=== PATIENT | male | born 1960 | race Caucasian/White ===

== ENCOUNTER 2019-04-16 17:44 | Emergency (ER) | payer OTHER, SELFPAY ==
[2019-04-16 17:46] VITALS: BP 111/70; PULSE 81; RESP 15; TEMP 36.6
--- NOTE | 2019-04-16 17:56 | ED.GENADUL_ITS ---
Discharge Plan Disposition Patient Disposition: HOME Condition: Stable Discharge Details Chief Complaint: Laceration Clinical Impression: Fracture of thumb, Laceration of thumb Primary Care Provider: Cristobal Moser ED Provider: Danielle Lazo Home Meds and New Rx's Prescriptions: New cephalexin [Keflex] 500 mg capsule 500 mg PO QID 7 Days Qty: 28 RF: 0 Continued sildenafil [Viagra] 100 mg tablet 100 mg PO DAILY PRN (Reason: sexual activity) Qty: 1 RF: 8 lisinopril-hydrochlorothiazide 10-12.5 mg tablet 1 tab PO DAILY Qty: 60 RF: 6 Discharge Instructions Instructions: Laceration (ED), Finger Fracture (ED) Additional Instructions: Rest ice and elevate right thumb is much as possible. Alternate Tylenol and Motrin as needed and directed for pain. Take antibiotics until finished. Call orthopedics tomorrow morning to schedule a follow-up appointment for reevaluation. Return to the emergency department he develop any worsening or new concerning symptoms. Referrals: Be Luis MD [ [facility] STAFF PHYSICIAN] - Discharge Data Discharge Date/Time-TO BE ENTERED AT DEPARTURE: 04/16/19 20:36 Discharge Physician: Danielle Lazo Medical Decision Making 59yo M who presents to the ED with a right thumb laceration sustained when caught in the tierney of a car at work prior to arrival. Tetanus up-to-date. 2 cm V-shaped irregular laceration on right medial thumb. No bony deformities noted. Motor/sensory grossly intact. Will send for right thumb x-ray and closed with sutures. 1919 --x-ray notes fracture base distal phalanx IP joint. Wound irrigated extensively and soaked. 6 sutures 5-0 nylon placed. Wound covered with antibiotic ointment and finger dressing and splint. Dose of 1 g of Keflex given here. Patient placed on orthopedic follow-up list. Patient instructed to call orthopedics tomorrow morning to schedule a follow-up appointment for reevaluation. He is instructed return here at any time if worse for fever chills or worsening pain. Medical Records Medical records reviewed: Yes I reviewed the patient's medical records. Imaging Data Radiologic Study: Radiologist's impression: XR Right Finger(s) EXAM DATE/TIME: 04/16/2019 5:57 PM CLINICAL HISTORY: 59 years old, male; Pain; Finger(s); Right; Patient HX: S/P minor crush injury R thumb in tierney of car, R/O foreign body/ fracture. TECHNIQUE: Imaging protocol: XR Right fingers. Views: Minimum 2 views. COMPARISON: No relevant prior studies available. FINDINGS: Bones/joints: There is a small fracture of the base of the first distal phalanx at the IP joint. There is degenerative changes of the first metacarpal phalangeal joint. Soft tissues: Associated soft tissue swelling. IMPRESSION: Fractured base of the first distal phalanx at the IP joint. HPI General Mode of arrival: ambulatory . Date/Time Provider Initiated Documentation: 04/16/19 17:46 . Limitations to Documentation: no limitations . Information obtained by: patient . HPI Narrative: Patient is a 59-year-old male who presents to the ED with complaint of right thumb laceration sustained when caught on the tierney of a car. Patient states tetanus up-to-date. He denies any other injuries. Related Data Home Medications Medication Instructions Recorded Confirmed lisinopril 10 1 tab PO DAILY #60 tab 10/23/18 03/26/19 mg-hydrochlorothiazide 12.5 mg tablet sildenafil 100 mg tablet 100 mg PO DAILY PRN #1 tab 03/26/19 03/26/19 cephalexin [Keflex] 500 mg PO QID 7 Days #28 cap 04/16/19 Previous Rx's Medication Instructions Recorded lisinopril 10 1 tab PO DAILY #60 tab 10/23/18 mg-hydrochlorothiazide 12.5 mg tablet sildenafil 100 mg tablet 100 mg PO DAILY PRN #1 tab 03/26/19 cephalexin [Keflex] 500 mg PO QID 7 Days #28 cap 04/16/19 Allergies Allergy/AdvReac Type Severity Reaction Status Date / Time WOOD PRESERVATIVES Allergy Mild Skin Rash Uncoded 03/26/19 08:17 General Stated Complaint: Laceration MICHAEL: 4 Review of Systems Review of Systems All systems reviewed & are unremarkable except as noted in HPI and below [facility] Medical History (Updated 04/16/19 @ 17:58 by Danielle Lazo DO) HTN (hypertension) (Chronic) Surgical History No significant past surgical history (Acute) Social History Smoking/Tobacco Use Status: Former Tobacco Use Alcohol Intake: current Alcohol Intake frequency: 3 or more drinks per day Drug use: Occasionally Substance use type: does not use Exam Const General: cooperative, healthy appearing and no acute distress HENMT Head: normal to inspection Mouth: oral mucosae normal Eyes General: appearance normal, both eyes and all related structures Neck Neck: normal visual inspection Resp Effort & Inspection: normal respiratory effort and able to speak in complete sentences Cardio Rate: regular rate Skin General skin exam: no rashes or lesions noted Neuro General: alert, awake and oriented x3 Motor: muscle tone normal throughout Extrem Hand/finger images: 1. 2cm V-shaped laceration on medial aspect of R thumb with minimal surrounding edema. No ecchymoses, obvious foreign body, bony deformity. Psych Appearance: grossly normal Affect: normal affect Course Vital Signs Temperature 97.9 F 04/16/19 17:46 Pulse 81 04/16/19 17:46 Respiratory Rate 15 04/16/19 17:46 Blood Pressure 111/70 04/16/19 17:46 Temperature 97.9 F 04/16/19 17:46 Temperature Source Skin 04/16/19 17:46 Pulse 81 04/16/19 17:46 Respiratory Rate 15 04/16/19 17:46 Respiratory Effort Non-Labored 04/16/19 17:46 Blood Pressure 111/70 04/16/19 17:46 Oxygen Delivery Method Room Air 04/16/19 17:46 Oxygen Flow Rate 0 04/16/19 17:46 Procedures Laceration Laceration 1: Site: hand Side (If applicable): right Size (cm): 2 Description: irregular Depth: simple, single layer Local Anesthetic: Lidocaine 1% Amount of anesthesia used (mL): 4 Skin layer closed with: nylon Size (cm): 5-0 Number of sutures: 6 Technique: simple, interrupted (some sutures crossing over another)
--- NOTE | 2019-04-16 17:59 | NUR.NOTE ---
Nursing Note: hand soaking in sterile saline and betadine
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
--- NOTE | 2019-04-16 19:01 | DI.VRAD_ITS ---
EXAM: XR Right Finger(s) EXAM DATE/TIME: 04/16/2019 5:57 PM CLINICAL HISTORY: 59 years old, male; Pain; Finger(s); Right; Patient HX: S/P minor crush injury R thumb in tierney of car, R/O foreign body/ fracture. TECHNIQUE: Imaging protocol: XR Right fingers. Views: Minimum 2 views. COMPARISON: No relevant prior studies available. FINDINGS: Bones/joints: There is a small fracture of the base of the first distal phalanx at the IP joint. There is degenerative changes of the first metacarpal phalangeal joint. Soft tissues: Associated soft tissue swelling. IMPRESSION: Fractured base of the first distal phalanx at the IP joint. Dictated and Authenticated by: Cindy Tolentino MD. Ordering:BOB Santos MD
[2019-04-16] MEDS: Cephalexin 500 MG CAP 1000 MG PO (20:29)
[2019-04-16] MEDS: Bacitracin 1 PACKET (20:29)
== END 2019-04-16 20:36 | disposition home or self-care (01) ==
PROVIDERS: Emergency Provider Physician Assistant; PCP Emergency Medicine
DX: S61.011A Laceration without foreign body of right thumb without damage to nail, initial encounter (principal); S62.521A Displaced fracture of distal phalanx of right thumb, initial encounter for closed fracture; W23.0XXA Caught, crushed, jammed, or pinched between moving objects, initial encounter; Y99.0 Civilian activity done for income or pay; I10 Essential (primary) hypertension
CPT/HCPCS: 12001; 26750; 73140

== ENCOUNTER 2019-10-28 09:39 | Outpatient (CLI) | payer OTHER, SELFPAY ==
--- NOTE | 2019-10-28 09:59 | DI.RAD_ITS ---
EXAM: XR SHOULDER LT COMPLETE 2+V INDICATION: PAIN. COMPARISON: No exams were available for comparison TECHNIQUE: 2D digital imaging was performed. FINDINGS: There is normal alignment of the left shoulder. The bones are intact and normally mineralized. The soft tissues are unremarkable.
== END 2019-10-28 09:59 ==
PROVIDERS: PCP Emergency Medicine; Visit Provider Student in an Organized Health Care Education/Training Program
DX: M25.512 Pain in left shoulder (principal)
CPT/HCPCS: 73030

== ENCOUNTER 2019-11-03 19:28 | Outpatient (REF) | payer SELFPAY ==
[2019-11-03 21:25] LABS: Bilirubin Negative (Negative); Blood Trace-intact (Negative); Clarity Sl Cloudy (Clear); Glucose Negative (Negative); Ketones Negative (Negative); Leukocyte Esterase Small (Negative); Nitrite Negative (Negative); Specific Gravity 1.015 (1.005-1.025); Urobilinogen 0.2 EU/dL (Up TO 0.2)
[2019-11-03 21:34] LABS: Bacteria Moderate HPF (Negative); WBC >50 HPF (0-5)
[2019-11-03 21:35] LABS: C & S Indicated? Yes; Epithelial Cells Few HPF (Negative)
== END 2019-11-03 19:48 ==
LOC: NCHCN 19:28
PROVIDERS: PCP Emergency Medicine
DX: N39.0 Urinary tract infection, site not specified (principal)
CPT/HCPCS: 87077; 81003; 81015; 87086; 87186

== ENCOUNTER 2019-11-05 01:20 | Outpatient (CLI) | payer OTHER, SELFPAY ==
--- NOTE | 2019-11-05 08:25 | DI.MRI_ITS ---
EXAM: MR UPPER JOINT LT WO CLINICAL HISTORY: Acute traumatic shoulder weakness, bursitis lt shoulder, scapular dyskinesia, tend initis of long head of biceps brachi lt shoulder, M75.52, G25.89, M75.22 TECHNIQUE: Multiplanar multisequence MRI was performed. COMPARISON: XR SHOULDER LT COMPLETE 2+V from 10/28/2019 FINDINGS: There is no significant spurring at the AC joint. There is minimal spurring at the tip of the acro mion. There is a small amount of fluid in the subacromial subdeltoid bursa. There is severe subscap ularis muscle atrophy. There appears to be a severe partial tear of the subscapularis tendon with mar ked thinning. There is high signal in the rotator interval and a question of small focal tear at the anterior aspect of the supraspinatus tendon. Biceps tendon appears intact. Infraspinatus and teres minor tendons appear intact. There are subchondral cysts in the humeral head. There are no gross l abral tears. IMPRESSION: Partial tear and severe atrophy of the subscapularis tendon. Tear of the rotator interval. Questio n of a tear at the anterior supraspinatus tendon.
== END 2019-11-05 01:40 ==
PROVIDERS: PCP Emergency Medicine; Visit Provider Student in an Organized Health Care Education/Training Program
DX: M25.512 Pain in left shoulder (principal); M75.52 Bursitis of left shoulder; M75.22 Bicipital tendinitis, left shoulder; S46.012A Strain of muscle(s) and tendon(s) of the rotator cuff of left shoulder, initial encounter
CPT/HCPCS: 73221

== ENCOUNTER 2020-02-11 14:18 | Outpatient (CLI) | payer OTHER, SELFPAY ==
--- NOTE | 2020-02-11 08:30 | DI.RAD_ITS ---
EXAM: XR ELBOW RT COMPLETE CLINICAL HISTORY: Evaluate injury to right elbow. TECHNIQUE: 2D digital imaging was performed. COMPARISON: No exams were available for comparison FINDINGS: BONES: No acute fracture is present. There are hypertrophic changes seen at the radial tuberosity. I t has a benign appearance. No periosteal reaction or cortical destruction is seen in this region. S mall well corticated osseous densities are seen adjacent to the lateral epicondyle which may reflect old injury. There is a large enthesophyte at the triceps insertion site. There is an adjacent tiny ossicle. This may represent a small fracture fragment. JOINTS: The elbow is normally aligned. No joint effusion is seen. SOFT TISSUE: There is prominent soft tissue swelling over the olecranon. This may represent a hemato ma. Please correlate with the patient's history. IMPRESSION: DATA REPOSITORY: RADIATION DOSE DELIVERED:
== END 2020-02-11 14:38 ==
PROVIDERS: PCP Emergency Medicine; Referring Provider Emergency Medicine; Visit Provider Student in an Organized Health Care Education/Training Program
DX: M25.521 Pain in right elbow (principal); M79.89 Other specified soft tissue disorders; S59.901A Unspecified injury of right elbow, initial encounter
CPT/HCPCS: 73080

== ENCOUNTER 2020-02-20 07:39 | Outpatient (CLI) | payer OTHER, SELFPAY ==
--- NOTE | 2020-02-20 09:00 | DI.MRI_ITS ---
EXAM: MR UPPER JOINT RT WO CLINICAL HISTORY: Right triceps rupture,[id number]. TECHNIQUE: Multiplanar multisequence MRI was performed. CONTRAST MATERIAL: Noncontrast COMPARISON: Plain films dated 11 Feb 2020. FINDINGS: There is spurring at the olecranon. There is some edema in the osteophyte and adjacent aspect of the olecranon. There is abnormal thickening and high signal as well as some waviness in the distal tric eps tendon. There may be a few intact fibers. There is marked dorsal edema in the soft tissues. Th ere is olecranon bursitis. No joint effusion is seen. Prominence of the radial tubercle is seen. T he biceps and brachialis tendons as well as common flexor and extensor tendons appear intact. IMPRESSION: Near complete tear of the triceps tendon. There may be a few intact fibers. Prominent olecranon spu r. Olecranon bursitis. DATA REPOSITORY:
== END 2020-02-20 07:59 ==
PROVIDERS: PCP Emergency Medicine; Visit Provider Student in an Organized Health Care Education/Training Program
DX: S46.311A Strain of muscle, fascia and tendon of triceps, right arm, initial encounter (principal); M70.21 Olecranon bursitis, right elbow
CPT/HCPCS: 73221

== ENCOUNTER 2020-02-24 12:28 | Outpatient (CLI) | payer SELFPAY ==
[2020-02-25 03:22] LABS: COVID-19 RT-PCR UVMMC Result Negative (Negative)
== END 2020-02-24 12:48 ==
PROVIDERS: PCP Emergency Medicine; Visit Provider Student in an Organized Health Care Education/Training Program
DX: Z11.59 Encounter for screening for other viral diseases (principal); Z01.818 Encounter for other preprocedural examination
CPT/HCPCS: U0003

== ENCOUNTER 2020-02-26 08:18 | Day surgery (SDC) | payer OTHER, SELFPAY ==
[2020-02-26] VITALS (10 sets, daily range): BP systolic 90–128; BP diastolic 50–88; PULSE 61–67; RESP 14–26; TEMP 36.4–37.1; O2SAT 94–97
[2020-02-26] MEDS: Lactated Ringers 1,000 ML 100 ML IV (09:16)
[2020-02-26] MEDS: ceFAZolin 2 GM/50 ML BAG IVPB (10:50)
--- NOTE | 2020-02-26 10:51 | ROE_ITS ---
Date of service: 02/26/20 Time of Service: 10:52 Operative Note Operative Note DATE OF PROCEDURE: 02/26/20 PRE-OP DIAGNOSIS: 1. Right elbow distal triceps tendon rupture 2. Right elbow olecranon bursitis POST-OP DIAGNOSIS: same PROCEDURE: 1. Right elbow triceps tendon repair, CPT# 71117 2. Right elbow excision olecranon bursa, CPT# 97405 SURGEON: Brandon Giordano [employer] OPERATOR: Lena Loo ANESTHESIA: GETA, regional and local ESTIMATED BLOOD LOSS: 15 TOURNIQUET TIME: 0 COMPLICATIONS: None Patient was transported to: PACU Patient's condition: stable Implants: Arthrex 4.75 mm swivel lock Indications: Please see complete medical record for details. Findings: High-grade partial distal triceps rupture probably 80% of the dorsal and central tendon insertion with poor quality tendon surrounding the tear and significant tendon degeneration about disrupted enthesophytes with preserved healthy attachments maybe 10% most medially and laterally. Significant olecranon bursitis loculated with loose bodies and significant calcium deposits throughout Procedure Description: In the operating room, general anesthesia was induced. The patient was positioned lateral on the operating room table. All bony prominences were well-padded. Preoperative antibiotics were administered. The right elbow was prepped and draped in the usual sterile fashion. The correct patient, procedure, and side of the procedure were all verified prior to incision. Using full-thickness flaps a posterior approach was taken to the olecranon and distal triceps tendon in a longitudinal fashion curving radially to avoid the tip of the olecranon. Hemostasis was maintained. A large chronic appearing olecranon bursitis fluid and calcium area was encountered. It was drained and removed circumferentially from superficial to deep in its entirety. The bursitis was significant and contained numerous calcium deposition loose bodies. The distal biceps tendon was exposed. The proximal ulna was exposed and the olecranon bursectomy completed distally. A large defect in the dorsal central distal triceps tendon was encountered. Care was taken to free up the distal triceps tendon from the central attachment while leaving the few healthy fibers most medially and laterally. The distal central tendon had to be debrided of significant weak degenerated frayed tissue and calcium and ensthesophytes were removed. Care was taken to protect the neurovascular structures both medially and laterally. A Hiwot clamp was used to maintain traction on the triceps while digital blunt dissection to free up the triceps tendon and confirm adequate reduction without undue tension at 90 degrees elbow flexion. Significant time was spent to clean up the tendon edge as well as the entirety of the bony bed footprint of the olecranon. There is significant osteophytes and previously mentioned enthesophytes that had to be removed to obtain an appropriate healthy bleeding bony bed tendon footprint. Next, the triceps tendon was secured using Arthrex suture tape in a locking Krak?w fashion using 2 sutures that were run from distal to proximal and back distal. Each suture pair exited the tendon footprint proximal margin. 2 fiber link sutures were then passed between each of the suture tape pairs keeping the loop proximal. 2 bone tunnels were placed in a proximal to distal fashion using a 2 mm drill and taking care to start at the proximal most margin of the triceps footprint and exit the proximal ulna cortex medially and laterally a few centimeters distally. Each set of 3 sutures both medially and laterally were brought through their respective bone tunnels using a Adhysteria suture retriever. One pair containing a suture tape from the medial and lateral repair stitch was then fed into the fiber link loop and brought through the tendon and back out the bone tunnel. This was repeated for the second side. This created a modified speed bridge reduction and compression repair. All sutures were provisionally tightened the elbow was taken to 90 degrees of flexion and there was found to be great apposition of healthy triceps tendon over its distal footprint without any gapping. The drill than the tap were used to place a 4.75 mm swivel lock in the central proximal ulna slightly distal from the 2 bone tunnels. After the drill was placed the Adhysteria suture passer was used to confirm the presence of a far cortex with additional depth available. Tap was then used to ensure the anchor would be appropriately flush and not prominent. Each pair of medial and lateral bone tunnel suture tapes was brought through the anchor eyelet from different sides and again individually tensioned medially and laterally. The suture anchor was inserted and brought flush to the cortex for maximal fixation and no irritation. The elbow was again brought through a range of motion and the tendon repair was found to be excellent and secure.. The free suture tape ends were cut. There was a small amount of medial tendon that was not secured by the speed bridge configuration. Fortunately, there was a #2 FiberWire available from the suture anchor. Each and was passed from deep to superficial in this medial tendon and the ends tied on top in horizontal mattress fashion. The knot was buried in the distal triceps tendon. Again, the elbow was ranged from full extension to flexion at least 135 degrees block by lateral positioning and beanbag. There was no gapping diastases or loss of fixation. The wound was copiously irrigated with normal saline. Deep tissue reapproximated itself nicely. Superficial layers were irrigated again with normal saline. 0.25% bupivacaine with epinephrine was infiltrated about the incision. 2-0 Monocryl was used to close subcutaneous tissue in a buried interrupted fashion. 3-0 Monocryl was used to close the skin in a buried subcuticular fashion. Xeroform was placed over the incision followed by dry 4 x 4 gauze and sterile soft roll. The arm was immobilized in a posterior plaster splint in approximately 90 degrees of elbow flexion. The patient awoke from anesthesia without complication and was transferred to the recovery room in a stable condition.
--- NOTE | 2020-02-26 14:08 | PDOC.DSDIS_ITS ---
Discharge Plan Disposition Patient Disposition: HOME Condition: Stable Discharge Details Reason For Visit: Right elbow surgery Attending Provider: Brandon Giordano Primary Care Provider: Cristobal Moser Home Meds and New Rx's Prescriptions: New naproxen 250 mg tablet 250 - 500 mg PO BID PRN (Reason: Moderate pain or swelling) Qty: 60 RF: 0 aspirin 81 mg tablet,delayed release (DR/EC) 81 mg PO DAILY 14 Days Qty: 14 RF: 0 oxycodone 5 mg tablet 5 - 10 mg PO Q4H PRN (Reason: moderate to severe pain) Qty: 12 RF: 0 Continued metronidazole [Metrogel] 1 % gel 1 applic TP DAILY Qty: 60 RF: 6 lisinopril-hydrochlorothiazide 10-12.5 mg tablet 1 tab PO DAILY Qty: 90 RF: 4 sildenafil [Viagra] 100 mg tablet 100 mg PO DAILY PRN (Reason: sexual activity) Qty: 3 RF: 8 naproxen 500 mg tablet 500 mg PO BID Qty: 20 RF: 0 valacyclovir 1 gram tablet 1,000 mg PO TID Qty: 21 RF: 0 Discontinued ibuprofen 200 mg tablet 800 mg PO DAILY PRN RF: 0 Discharge Instructions Additional Instructions: Surgery: Right elbow triceps tendon repair and olecranon bursa excision Activity: Non-weightbearing in splint at all times except to use hand for activities of daily living. Recommend elevation on a pillow or at the level of the heart to minimize swelling. May use sling when out of the house. Encourage daily range of motion all fingers and thumb. A physical therapy prescription will be provided separately today. Rehab protocol: Gentle elbow range of motion for 1 month. Active flexion okay. Passive?only extension. After 1 month advance to full range of motion with active assist and active extension. After 2 months may start closed chain strengthening After 3 months may start eccentric strengthening Prescriptions: Aspirin 81 mg take 1 daily to prevent a blood clot for 2 weeks Naproxen 250 mg take 1-2 every 12 hours with a meal as needed for moderate pain Oxycodone 5 mg take 1-2 every 4-6 hours as needed for severe pain You may use [id number] Tylenol (acetaminophen) as needed for mild pain. These pain medications may be taken all at once or in different combinations as needed. Also, recommend Colace (docusate) as a stool softener as surgery and pain medicine cause constipation. Dressings: Leave splint and dressing in place until follow-up. Keep clean and dry at all times. Follow-up: 10-[address] Giordano Patient may put his left shoulder previously prescribed physical therapy on hold for at least 2 weeks while he is recovering from his right elbow surgery. Please call the office during business hours with any questions or concerns. Let us know right away if you develop any redness, drainage, fevers, chest pain, or trouble breathing. Do not drink alcohol or drive for at least 24 hours after anesthesia. Referrals: Brandon Giordano MD [ [facility] STAFF PHYSICIAN] - DS: Diagnosis Discharge Diagnosis (1) Rupture of right triceps tendon: Status: Acute (2) Olecranon bursitis of right elbow: Status: Acute
== END 2020-02-26 15:58 | disposition home or self-care (01) ==
PROVIDERS: PCP Emergency Medicine; Visit Provider Student in an Organized Health Care Education/Training Program
PROC: (CPT 24341; principal; 2020-02-26 10:00)
DX: S46.311A Strain of muscle, fascia and tendon of triceps, right arm, initial encounter (principal); X58.XXXA Exposure to other specified factors, initial encounter; Y99.0 Civilian activity done for income or pay; M70.21 Olecranon bursitis, right elbow; G89.18 Other acute postprocedural pain
CPT/HCPCS: 24342; 24105; J0690; J1100; J2001; J2250; J2405; J2704; L3650

== ENCOUNTER 2020-03-14 10:32 | Emergency (ER) | payer SELFPAY ==
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
[2020-03-14 11:02] VITALS: BP 117/84; PULSE 83; RESP 18; TEMP 36.9; O2SAT 98
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
[2020-03-14] MEDS: Cephalexin 500 MG CAP PO (12:46)
== END 2020-03-14 13:26 | disposition home or self-care (01) ==
LOC: ER 11:51
PROVIDERS: Emergency Provider Student in an Organized Health Care Education/Training Program; PCP Emergency Medicine
DX: S62.630B Displaced fracture of distal phalanx of right index finger, initial encounter for open fracture (principal); W32.0XXA Accidental handgun discharge, initial encounter; I10 Essential (primary) hypertension
CPT/HCPCS: 99283; 73140

== ENCOUNTER 2020-03-16 11:23 | Outpatient (CLI) | payer SELFPAY ==
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
== END 2020-03-16 11:43 ==
PROVIDERS: PCP Emergency Medicine; Referring Provider Emergency Medicine; Visit Provider Physician Assistant Surgical
DX: S62.620A Displaced fracture of middle phalanx of right index finger, initial encounter for closed fracture (principal); S62.630A Displaced fracture of distal phalanx of right index finger, initial encounter for closed fracture
CPT/HCPCS: 73140

== ENCOUNTER 2020-03-23 15:13 | Outpatient (CLI) | payer SELFPAY ==
--- NOTE | 2020-03-23 14:30 | DI.RAD_ITS ---
EXAM: XR FINGER RT INDEX CLINICAL HISTORY: f/u fracture. TECHNIQUE: 2D digital imaging was performed. COMPARISON: CR XR FINGER RT INDEX from 03/16/2020 FINDINGS: BONES: The comminuted fractures involving the head of the middle phalanx and the base of the distal p halanx of the right index finger are unchanged. No new fracture is identified. JOINTS: Alignment of the joint is unchanged. SOFT TISSUE: There is persistent soft tissue swelling of the distal finger. IMPRESSION: Stable fractures involving the middle and distal phalanges of the right index finger. DATA REPOSITORY: RADIATION DOSE DELIVERED:
== END 2020-03-23 15:33 ==
PROVIDERS: PCP Emergency Medicine; Referring Provider Emergency Medicine; Visit Provider Student in an Organized Health Care Education/Training Program
DX: S62.620D Displaced fracture of middle phalanx of right index finger, subsequent encounter for fracture with routine healing (principal); S62.630D Displaced fracture of distal phalanx of right index finger, subsequent encounter for fracture with routine healing
CPT/HCPCS: 73140

== ENCOUNTER 2020-03-25 06:13 | Day surgery (SDC) | payer SELFPAY ==
[2020-03-25 06:15] VITALS: BP 118/79; PULSE 70; RESP 18; TEMP 36.7; O2SAT 99
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
[2020-03-25] MEDS: Lactated Ringers 1,000 ML 100 ML IV (06:54)
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
[2020-03-25] MEDS: ceFAZolin 2 GM/50 ML BAG IVPB (07:28)
[2020-03-25] MEDS: Sodium Bicarbonate 50 MEQ/50 ML VIAL (08:51)
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
== END 2020-03-25 09:25 | disposition home or self-care (01) ==
PROVIDERS: PCP Emergency Medicine; Visit Provider Student in an Organized Health Care Education/Training Program
PROC: (CPT 26756; principal; 2020-03-25 07:30)
DX: S62.630B Displaced fracture of distal phalanx of right index finger, initial encounter for open fracture (principal); W32.0XXA Accidental handgun discharge, initial encounter
CPT/HCPCS: 26756; 11012; 73120; J0690

== ENCOUNTER 2020-05-04 09:02 | Outpatient (CLI) | payer SELFPAY ==
--- NOTE | 2020-05-04 08:45 | DI.RAD_ITS ---
EXAM: XR FINGER RT INDEX CLINICAL HISTORY: fu healing right index finger. TECHNIQUE: 2D digital imaging was performed. COMPARISON: CR XR FINGER RT INDEX from 03/23/2020 XR HAND RT LIMITED from 03/25/2020 FINDINGS: BONES: There are stable post operative changes present. No change in alignment of the fracture. No new fracture is identified. JOINTS: The joint spaces are well maintained. No joint effusion is present. SOFT TISSUE: Soft tissue swelling around the finger. IMPRESSION: Stable postoperative changes. DATA REPOSITORY: RADIATION DOSE DELIVERED:
--- NOTE | 2020-05-04 09:15 | DI.RAD_ITS ---
EXAM: XR ELBOW RT COMPLETE CLINICAL HISTORY: fu right elbow pain. TECHNIQUE: 2D digital imaging was performed. COMPARISON: CR XR ELBOW RT COMPLETE from 02/11/2020 FINDINGS: Since the prior examination there has been decreased size of the enthesophyte on the olecranon. Ther e is also been a resolution of the soft tissue swelling posteriorly. Hypertrophic changes around the elbow appear stable. No acute fracture or dislocation is identified. The bones are normally minera lized. IMPRESSION: DATA REPOSITORY: RADIATION DOSE DELIVERED:
== END 2020-05-04 09:22 ==
PROVIDERS: PCP Emergency Medicine; Referring Provider Emergency Medicine; Visit Provider Student in an Organized Health Care Education/Training Program
DX: M25.521 Pain in right elbow (principal); S62.600D Fracture of unspecified phalanx of right index finger, subsequent encounter for fracture with routine healing; Z98.890 Other specified postprocedural states; M77.9 Enthesopathy, unspecified
CPT/HCPCS: 73080; 73140

== ENCOUNTER 2020-06-22 08:13 | Outpatient (CLI) | payer SELFPAY ==
--- NOTE | 2020-06-22 08:00 | DI.RAD_ITS ---
EXAM: XR FINGER RT INDEX CLINICAL HISTORY: f/u fracture TECHNIQUE: 2D digital imaging was performed. COMPARISON: CR XR FINGER RT INDEX from 05/04/2020 FINDINGS: The previously noted pin through the distal and middle phalanges has been removed. Fracture deformit ies of the distal aspect of the middle phalanx of base of the distal phalanx are again noted. Soft t issue swelling remains present.
--- NOTE | 2020-06-22 08:15 | DI.RAD_ITS ---
EXAM: XR SHOULDER LT COMPLETE 2+V CLINICAL HISTORY: f/u shoulder TECHNIQUE: 2D digital imaging was performed. COMPARISON: MR MR UPPER JOINT LT WO from 11/05/2019 FINDINGS: AP and axillary views were performed. There is mild narrowing of the glenohumeral joint and mild to moderate spurring of the glenoid. The AC joint is not optimally profiled but mild spurring is suspec theo. Humeral head is normally positioned. IMPRESSION: Ixgs-zj-vzrzckmn degenerative changes.
== END 2020-06-22 08:33 ==
PROVIDERS: PCP Emergency Medicine; Referring Provider Emergency Medicine; Visit Provider Student in an Organized Health Care Education/Training Program
DX: S62.630A Displaced fracture of distal phalanx of right index finger, initial encounter for closed fracture (principal); M19.012 Primary osteoarthritis, left shoulder
CPT/HCPCS: 73030; 73140

== ENCOUNTER 2020-07-07 01:30 | Outpatient (CLI) | payer OTHER, SELFPAY ==
--- NOTE | 2020-07-07 08:15 | DI.MRI_ITS ---
EXAM: MR UPPER JOINT LT WO CLINICAL HISTORY: Failure to progress, reevaluation,fracture of greater tuberosity lt humerus. TECHNIQUE: Multiplanar multisequence MRI was performed. COMPARISON: MR MR UPPER JOINT LT WO from 11/05/2019 CR XR SHOULDER LT COMPLETE 2+V from 06/22/2020 FINDINGS: BONES: There is no fracture or contusion pattern. There is mild marrow edema seen in the humeral head . JOINTS: Mild degenerative changes are seen at the acromioclavicular joint. The glenohumeral joint is normal. TENDONS: Supraspinatus: There is hyperintense signal seen anteriorly at the supraspinatus tendon. There also appears to be some artifact in this region. This may represent a partial tear of the supraspinatus t endon anteriorly. Infraspinatus: Unremarkable. Subscapularis: On the axial images there appears to be disruption of the Piyush of the superior aspec t of the subscapularis tendon suspicious for a tear. Teres Minor: Unremarkable. Biceps and [place]: Unremarkable. MUSCLES: There is mild atrophy of the infraspinatus and subscapularis muscles. GLENOID LABRUM: Unremarkable on this noncontrast examination. SOFT TISSUES: Unremarkable. LIGAMENTS: The coracoclavicular ligament appears grossly unremarkable. OTHER: There is a small amount of fluid seen in the subacromial subdeltoid bursa. There is fluid see n in the subcoracoid bursa. A small amount of fluid is seen within the glenohumeral joint which is w ithin normal limits. The rotator interval has a similar appearance compared to the prior examination . IMPRESSION: 1. Similar appearances of the supraspinatus and subscapularis tendon suspicious for partial tears. 2. Marrow edema seen in the region of the greater tuberosity. Degenerative changes of the AC joint. 3. Mild atrophy of the infraspinatus and subscapularis muscles. 4. Fluid seen in the subacromial subdeltoid bursa. DATA REPOSITORY:
== END 2020-07-07 01:50 ==
PROVIDERS: PCP Emergency Medicine; Visit Provider Student in an Organized Health Care Education/Training Program
DX: M19.012 Primary osteoarthritis, left shoulder (principal); S42.255D Nondisplaced fracture of greater tuberosity of left humerus, subsequent encounter for fracture with routine healing; M62.522 Muscle wasting and atrophy, not elsewhere classified, left upper arm
CPT/HCPCS: 73221

== ENCOUNTER 2020-08-09 03:08 | Outpatient (CLI) | payer OTHER, SELFPAY ==
[2020-08-10 11:06] LABS: SARS-CoV-2 RNA Source Nasal/Nares
[2020-08-10 11:07] LABS: SARS-CoV-2 RNA Not Detected (NotDetected)
== END 2020-08-09 03:28 ==
PROVIDERS: PCP Emergency Medicine; Visit Provider Student in an Organized Health Care Education/Training Program
DX: Z01.818 Encounter for other preprocedural examination (principal); M24.812 Other specific joint derangements of left shoulder, not elsewhere classified; M75.102 Unspecified rotator cuff tear or rupture of left shoulder, not specified as traumatic; M75.52 Bursitis of left shoulder; M75.22 Bicipital tendinitis, left shoulder
CPT/HCPCS: U0003

== ENCOUNTER 2020-08-12 10:29 | Day surgery (SDC) | payer OTHER, SELFPAY ==
[2020-08-12] VITALS (7 sets, daily range): BP systolic 101–137; BP diastolic 67–86; PULSE 70–74; RESP 16–18; TEMP 36.3–36.7; O2SAT 95–100
--- NOTE | 2020-08-12 10:16 | PDOC.DSDIS_ITS ---
Discharge Plan Disposition Patient Disposition: HOME Condition: Stable Discharge Details Reason For Visit: Left shoulder surgery Attending Provider: Brandon Giordano Primary Care Provider: Cristobal Moser Home Meds and New Rx's Prescriptions: New ibuprofen 800 mg tablet 800 mg PO BID PRN (Reason: pain, moderate) Qty: 60 RF: 0 aspirin 81 mg tablet,delayed release (DR/EC) 81 mg PO DAILY 14 Days Qty: 14 RF: 0 oxycodone 5 mg tablet 5 - 10 mg PO Q4H PRN (Reason: moderate to severe pain) Qty: 16 RF: 0 Continued lisinopril-hydrochlorothiazide 10-12.5 mg tablet 1 tab PO DAILY Qty: 90 RF: 4 sildenafil [Viagra] 100 mg tablet 100 mg PO DAILY PRN (Reason: sexual activity) Qty: 3 RF: 8 metronidazole [Metrogel] 1 % gel 1 applic topical QHS Qty: 60 RF: 6 Discharge Instructions Additional Instructions: Surgery: Shoulder arthroscopy with rotator cuff repair, biceps tenodesis, extensive debridement, and subacromial decompression. Activity: You should keep your arm at your side in a neutral position at all times except for physical therapy. Do not try to lift or raise your arm using your own muscles. You should use the sling whenever you are out of the house. You may have to adjust the abduction pillow or remove it for comfort. At home it is best to remove the sling and rest the arm on a pillow at your side or support the operative side with your other hand. You may allow the arm to dangle at your side. A physical therapy prescription will be sent electronically to begin in 2-3 weeks. Prescriptions: Aspirin 81 mg take 1 daily to prevent a blood clot for 2 weeks Ibuprofen 800 mg take 1-2 every 12 hours with a meal as needed for moderate pain Oxycodone 5 mg take 1-2 every 4-6 hours as needed for severe pain You may use kexv-fhk-snsciml Tylenol (acetaminophen) as needed for mild pain. These pain medications may be taken all at once or in different combinations as needed. Also, recommend Colace (docusate) as a stool softener as surgery and pain medicine cause constipation. Dressings: Remove shoulder bandage after 3 days. Leave the sticky Steri-Strips in place until they fall off or remove them after you shower. Cover the incisions with Band-Aids or leave them open to air. The biceps bandage (inside upper arm) is glued on separately. You may leave this one on a few days longer if it is difficult to remove. There is also glue underneath this bandage that can be left in place until it peels off. You may shower after 5 days. Follow-up: 10-[address] Giordano (08/25/20 at 10 AM) You may take off the leg compression stockings this evening at home. You may also leave them on a few days longer if you have a history of leg swelling or edema. Let us know right away if you develop any redness, drainage, fevers, chest pain, or trouble breathing. Do not drink alcohol or drive for at least 24 hours after anesthesia. Please call the office during business hours with any questions or concerns. Referrals: Brandon Giordano MD [ [facility] STAFF PHYSICIAN] - Discharge Orders Discharge Orders: Discharge Order (Routine); Ordered 08/12/20 Ordered By: Brandon Giordano DS: Diagnosis Discharge Diagnosis (1) Derangement of left shoulder joint: Status: Acute (2) Left rotator cuff tear: Status: Acute (3) Bursitis of left shoulder: Status: Acute (4) Tendinitis of long head of biceps brachii of left shoulder: Status: Acute (5) Fracture of greater tuberosity of left humerus: Status: Acute (6) Scapular dyskinesis: Status: Acute
[2020-08-12] MEDS: Lactated Ringers 1,000 ML 100 ML IV (11:05)
[2020-08-12] MEDS: ceFAZolin 2 GM/50 ML BAG IVPB (12:49)
[2020-08-12] MEDS: Bupivacaine 0.25% Pres-Free 30 ML VIAL (14:06)
[2020-08-12] MEDS: EPINEPHrine 30 MG/30 ML VIAL (15:47)
--- NOTE | 2020-08-12 16:08 | ROE_ITS ---
Date of service: 08/12/20 Time of Service: 16:01 Operative Note Operative Note DATE OF PROCEDURE: 08/12/20 PRE-OP DIAGNOSIS: Left: 1. Rotator cuff tear 2. LHB tendinopathy 3. Bursitis 4. Impingement POST-OP DIAGNOSIS: same PROCEDURE: Left: 1. Rotator cuff repair, CPT# 69185. This involved repair of the supraspinatus using anchor and sutures to reattach the rotator cuff back to the anterior lateral aspect of the greater tuberosity. 2. Open biceps tenodesis, CPT# 45355. This involved reattaching the long head of the biceps tendon to the proximal humerus in the sub-pectoral area of the bicipital groove at the correct tension. 3. Extensive debridement, CPT# 08017. This involved using arthroscopic hand instruments, power instruments, and radiofrequency instruments to release to r elease the long head of the biceps tendon and debride areas of labral tearing, synovitis, and chondromalacia about the biceps groove and lesser tuberosity within the glenohumeral joint anteriorly, superiorly and posteriorly. 4. Subacromial decompression with partial acromioplasty, CPT# 60686. This involved using arthroscopic power instruments and a radiofrequency wand to complete a bursectomy and remove bone spurs on the undersurface of the acromion. The certified surgical assistant was medically required in order to help assist in techniques above, which require positioning the arm, holding the arthroscope, and manipulating multiple instruments and sutures at the same time. This cannot be done without the help of an experienced certified surgical assistant. SURGEON: Brandon Giordano MOTOR INSPECTION MECHANIC: Lena Loo ANESTHESIA: GETA, regional and local ESTIMATED BLOOD LOSS: 5 PATHOLOGY: none sent COMPLICATIONS: None Patient was transported to: PACU Patient's condition: stable Implants: Arthrex: 4.75mm SwiveLocks x 1 and Unicortical Proximal Biceps Tenodesis Button Indications: The patient was diagnosed with the above conditions and a ppropriately indicated for surgical intervention. Please see complete medical record for details. Findings: Exam under anesthesia: Nearly full, symmetrical range of motion without instability Glenohumeral joint: Profound synovitis hemorrhagic inflammation anteriorly and superiorly. Long head of the biceps injection and type II SLAP tear. Chronic appearing atrophied subscapularis tear. Far anterior majority thickness adjacent to the rotator interval articular sided supraspinatus tear. Intact infraspinatus. Subacromial space: Significant bursitis. Moderate impinging subacromial bone spur. Rotator interval retracted chronic tissue injury with adjacent anteriormost nearly full-thickness supraspinatus tear. Intact infraspinatus. Intact majority supraspinatus over the greater tuberosity except for most anterior. Procedure Description: In the operating room, general anesthesia was induced. Bilateral shoulders were examined. The patient was positioned in the beachchair position. All bony prominences were well-padded. Preoperative antibiotics were administered. The shoulder was prepped and draped in the usual sterile fashion. The correct patient, procedure, and side of the procedure were all verified prior to incision. Starting through the posterior portal a standard complete diagnostic arthroscopy was performed of the glenohumeral joint including inspection of the long head of the biceps, anterior and superior labrum, subscapularis tendon, supraspinatus and infraspinatus tendons, and axillary recess. The glenoid and humeral head cartilage as well as the posterior labrum were inspected from an anterior viewing portal. Significant findings and interventions noted above. The biceps tendon was released from the superior labrum using arthroscopic scissors. 10 cc of 0.25% bupivacaine with epinephrine was infiltrated about a 2 to 3 cm longitudinal incision at the inferior margin of the pectoralis major localized over the long head of the biceps tendon. Blunt and sharp dissection were used to expose the tendon in the bicipital groove. The tendon was brought out of the wound and kept off the skin on top of a blue towel. The correct location for sub-pectoral fixation was localized, prepped with a rasp, and then drilled with a 3.2 mm drill pin in a unicortical fashion. Using a fiber loop suture the tendon was prepped from the musculotendinous junction a few centimeters proximal. The excess tendon was amputated. The free suture ends were then passed through the unicortical button implant. The drill pin was removed and the implant was placed into the humeral intramedullary canal. The button was flipped and the sutures were tensioned bringing the tendon down to bone. Tension and fixation were then tested and found to be appropriate. A free needle was used to pass suture through the tendon and the free ends of the suture were were tied compressing tendon to bone. The wound was copiously irrigated with normal saline. Subcutaneous tissue was closed using 3-0 Monocryl in a buried interrupted fashion. Skin was closed using 3-0 Monocryl in a buried subcuticular running fashion. Skin glue was applied over the incision. Mastisol was applied about the incision. The incision was covered with Telfa, gauze, and covered with a Tegaderm dressing. Starting through the posterior portal, the arthroscope was directed into the subacromial space. A lateral 50 yard line lateral portal was created. A combination of power instruments and a radiofrequency ablator were used to debride bursitis anteriorly, posteriorly, and laterally as well as expose and smooth bone spurring on the undersurface of the acromion. The coracoacromial ligament was minimally released. The bursectomy was completed viewing laterally and working from posteriorly and the rotator cuff was thoroughly inspected with findings noted above. Cannulas were directed at the rotator cuff tear and a superior anterior lateral rotator interval portal established. The tear was extremely anterior and was debrided to a stable tissue margin. The rotator interval tissue was retracted possibly chronically and not amenable to repair. The patient also history of stiffness this was avoided. The supraspinatus anteriormost margin could be lifted off its articular margin most anteriorly and this was debrided to the lateral most anterior footprint. A self retrieving suture passer was used to pass a fiber tape in an inverted horizontal mattress fashion and looped into a cinch stitch. An isolated anterior lateral anchor was punched, the sutures were loaded to the anchor appropriate tension applied the ankle inserted into bone. The repair was inspected and found to be stable throughout range of motion. The shoulder was drained of arthroscopic fluid. All portal sites were copiously irrigated. These incisions were closed using 3-0 Monocryl in a buried fashion, covered with Mastisol, Steri-Strips, Xeroform, dry gauze, and ABDs. The dressings were covered and secured with Medipore tape. The operative extremity was placed into a sling for immobilization. The patient awoke from anesthesia without complication and was transferred to the recovery room in a stable condition.
== END 2020-08-12 17:44 | disposition home or self-care (01) ==
LOC: SUR 10:29
PROVIDERS: PCP Emergency Medicine; Visit Provider Student in an Organized Health Care Education/Training Program
PROC: (CPT 29827; principal; 2020-08-12 11:30)
PROC: (CPT 23430; 2020-08-12 11:30)
DX: S43.422A Sprain of left rotator cuff capsule, initial encounter (principal); M75.22 Bicipital tendinitis, left shoulder; M75.52 Bursitis of left shoulder; M75.02 Adhesive capsulitis of left shoulder; M65.812 Other synovitis and tenosynovitis, left shoulder; S43.432A Superior glenoid labrum lesion of left shoulder, initial encounter; X58.XXXA Exposure to other specified factors, initial encounter; Y99.0 Civilian activity done for income or pay; G89.18 Other acute postprocedural pain
CPT/HCPCS: 29827; 23430; 29823; 29826; 76942; L3670; J0690; J2001; J2250; J2370

== ENCOUNTER 2020-12-17 21:09 | Outpatient (REF) | payer SELFPAY ==
[2020-12-17 21:33] LABS: Anion Gap 8.9 mmol/L (3-11); BUN 23 mg/dL (7-18); CO2 26.1 mmol/L (21.0-32.0); CREATININE 1.4 mg/dL (0.70-1.30); Calcium 8.9 mg/dL (8.5-10.1); Calculated LDL 156 mg/dL (<100); Chloride 102 mmol/L (98-107); Cholesterol 252 mg/dL (<200); Estimated GFR 51.87 (mL/min/1.73m2); Glucose 94 mg/dL (74-106); HDL Cholesterol 51 mg/dL (40-60); Potassium 4.2 mmol/L (3.5-5.1); Sodium 137 mmol/L (136-145); Triglyceride 228 mg/dL (<150)
[2020-12-20 10:22] LABS: PSA, Screening 3.4 ng/mL (0.0-3.5)
== END 2020-12-17 21:10 | disposition home or self-care (01) ==
LOC: LBN 21:09
PROVIDERS: PCP Emergency Medicine; Visit Provider Emergency Medicine
DX: I10 Essential (primary) hypertension (principal); Z12.5 Encounter for screening for malignant neoplasm of prostate
CPT/HCPCS: 80048; 80061; 84153

== ENCOUNTER 2021-02-23 09:34 | Outpatient (CLI) | payer SELFPAY ==
--- NOTE | 2021-02-23 08:30 | DI.RAD_ITS ---
Exam(s) XR KNEE RT 3V AP,LAT,LJ EXAM: XR KNEE RT 3V AP,LAT,JL CLINICAL HISTORY: right knee pain. TECHNIQUE: 2D digital imaging was performed. COMPARISON: MR RIGHT KNEE from 11/12/2007 CR CHEST 2 VIEWS PA,LAT from 02/19/2012 FINDINGS: There is mild narrowing of the femoral tibial joint space. Periarticular spurring is seen in the pos terior patella. No acute fracture or dislocation is seen. There is a well corticated osseous densit y at the anterior tibial tuberosity. This is unchanged compared to the MRI examination from 8. There is again seen a lucency with a sclerotic border in the posterior metaphysis of the proximal tibia. This was present on the MRI examination from 11/12/2007 and is unchanged. No suspicious lyti c or sclerotic lesions are seen. There is a small joint effusion. Atherosclerosis is present. IMPRESSION: 1. Mild degenerative changes of the right knee. 2. Small joint effusion. DATA REPOSITORY: RADIATION DOSE DELIVERED:
== END 2021-02-23 09:35 | disposition home or self-care (01) ==
LOC: DIORS 09:35
PROVIDERS: PCP Emergency Medicine; Referring Provider Emergency Medicine; Visit Provider Student in an Organized Health Care Education/Training Program
DX: M25.561 Pain in right knee (principal); M25.461 Effusion, right knee; M13.861 Other specified arthritis, right knee
CPT/HCPCS: 73562

== ENCOUNTER 2021-09-13 11:47 | Outpatient (CLI) | payer OTHER, SELFPAY ==
--- NOTE | 2021-09-13 10:45 | DI.RAD_ITS ---
Exam(s) XR ELBOW RT COMPLETE EXAM: XR ELBOW RT COMPLETE CLINICAL HISTORY: RIGHT ELBOW PAIN. TECHNIQUE: 2D digital imaging was performed of the left elbow. Three images were obtained. AP, lat eral and oblique views were obtained. COMPARISON: No exams were available for comparison FINDINGS: BONES: No acute fracture is present. No bony destructive lesion is seen. JOINTS: The elbow is normally aligned. No joint effusion is seen. Hypertrophic changes are seen aroun d the elbow. SOFT TISSUE: Dystrophic calcifications are seen in the soft tissues posterior to the elbow. IMPRESSION: No acute abnormality. DATA REPOSITORY: RADIATION DOSE DELIVERED:
== END 2021-09-13 11:48 | disposition home or self-care (01) ==
LOC: DIORS 11:47
PROVIDERS: PCP Emergency Medicine; Referring Provider Emergency Medicine; Visit Provider Student in an Organized Health Care Education/Training Program
DX: M25.521 Pain in right elbow (principal); M79.89 Other specified soft tissue disorders
CPT/HCPCS: 73080

== ENCOUNTER 2022-01-17 05:58 | Outpatient (CLI) | payer SELFPAY ==
[2022-01-17 08:56] LABS: Anion Gap 7.7 mmol/L (3-11); BUN 27 mg/dL (7-18); CO2 28.3 mmol/L (21.0-32.0); CREATININE 1.2 mg/dL (0.70-1.30); Calcium 8.9 mg/dL (8.5-10.1); Calculated LDL 111 mg/dL (<100); Chloride 102 mmol/L (98-107); Cholesterol 199 mg/dL (<200); Glucose 104 mg/dL (74-106); HDL Cholesterol 61 mg/dL (40-60); Potassium 4.7 mmol/L (3.5-5.1); Sodium 138 mmol/L (136-145); Triglyceride 135 mg/dL (<150)
[2022-01-17 20:15] LABS: PSA, Screening 2.9 ng/mL (<=4.5)
== END 2022-01-17 05:59 | disposition home or self-care (01) ==
LOC: LBO 05:59
PROVIDERS: PCP Nurse Practitioner Family; Visit Provider Emergency Medicine
DX: E78.5 Hyperlipidemia, unspecified (principal); I10 Essential (primary) hypertension; R97.20 Elevated prostate specific antigen [PSA]; Z12.5 Encounter for screening for malignant neoplasm of prostate
CPT/HCPCS: 36415; 80048; 80061; 84153

== ENCOUNTER 2023-01-17 02:54 | Outpatient (CLI) | payer OTHER, SELFPAY ==
[2023-01-17 16:15] LABS: ALT 45 U/L (16-63); AST 33 U/L (15-37); Alkaline Phosphatase 101 U/L (46-116); Bilirubin, Direct 0.1 mg/dL (0.0-0.2); Bilirubin, Total 0.4 mg/dL (0.2-1.0); CREATININE 1.5 mg/dL (0.70-1.30); Estimated GFR 52.64 (mL/min/1.73m2); Potassium 4.5 mmol/L (3.5-5.1); Total Protein 7.9 g/dL (6.4-8.2)
== END 2023-01-17 02:55 | disposition home or self-care (01) ==
LOC: LBO 02:54
PROVIDERS: PCP Nurse Practitioner Family; Visit Provider Nurse Practitioner Family
DX: I10 Essential (primary) hypertension (principal); F10.10 Alcohol abuse, uncomplicated; E78.5 Hyperlipidemia, unspecified
CPT/HCPCS: 36415; 80076; 82565; 84132

== ENCOUNTER 2023-05-10 13:40 | Emergency (ER) | payer OTHER, SELFPAY ==
[2023-05-10 13:48] VITALS: BP 122/65; PULSE 63; RESP 18; TEMP 36.8; O2SAT 99
[2023-05-10 14:45] VITALS: BP 106/64; PULSE 63; RESP 16; O2SAT 100
[2023-05-10 15:03] LABS: Lactate 0.6 mmol/L (0.6-1.4)
[2023-05-10 15:04] LABS: Abs Immature Grans 0.05 10^3/uL (0.0-0.06); Absolute Basophil Count 0.05 10^3/uL (0.0-0.2); Absolute Eosinophil Count 0.27 10^3/uL (0.0-0.7); Absolute Lymphocyte Count 1.31 10^3/uL (1.2-3.4); Absolute Monocyte Count 0.86 10^3/uL (0.1-0.8); Absolute Neutrophil Count 7.88 10^3/uL (1.2-6.7); Basophils % 0.5; Eosinophils % 2.6; HCT 38.7 % (40.0-50.0); HGB 12.7 g/dL (13.5-17.5); Immature Grans % 0.5; Lymphocytes % 12.6; MCHC 32.8 % (32.0-36.0); MCV 92 fL (80-95); MPV 9.3 fL (8.0-11.0); Monocytes % 8.3; Neutrophils % 75.5; Platelet Count 300 10^3/uL (130-400); RBC 4.23 10^6/uL (4.36-5.78); RDW 12.8 % (11.8-14.1); RDW-SD 42.8 fL; WBC 10.42 10^3/uL (4.4-10.8)
[2023-05-10 15:05] LABS: ESR 19 mm/hr (0-20)
[2023-05-10 15:20] LABS: ALT 26 U/L (16-63); AST 21 U/L (15-37); Albumin 3.5 g/dL (3.4-5.0); Alkaline Phosphatase 91 U/L (46-116); Anion Gap 10.1 mmol/L (3-11); BUN 34 mg/dL (7-18); Bilirubin, Total 0.4 mg/dL (0.2-1.0); C-Reactive Protein 10.02 mg/dL (0.0-0.3); CO2 26.9 mmol/L (21.0-32.0); CREATININE 1.4 mg/dL (0.70-1.30); Chloride 102 mmol/L (98-107); Estimated GFR 56.83 (mL/min/1.73m2); Glucose 106 mg/dL (74-106); Potassium 4.3 mmol/L (3.5-5.1); Sodium 139 mmol/L (136-145); Total Protein 7.9 g/dL (6.4-8.2)
--- NOTE | 2023-05-10 15:29 | W.ED.GENAD ---
Discharge Plan Disposition Patient Disposition: Home Condition: Improving Discharge Details Clinical Impression: Septic olecranon bursitis of right elbow Primary Care Provider: [facility] Jay ED Provider: Mariela Doyle Home Meds and New Rx's Prescriptions: New cephalexin 500 mg tablet 500 mg PO QID 10 Days Qty: 40 0RF clindamycin HCl 300 mg capsule 300 mg PO Q6H 10 Days Qty: 40 0RF No Action fluticasone propionate [Flonase Allergy Relief] 50 mcg/actuation spray,suspension 1 spray intranasal DAILY Qty: 16 3RF Rx Instructions: administer into each nostril cephalexin 500 mg capsule 500 mg PO QID Qty: 40 0RF triamcinolone acetonide 0.5 % cream 1 applic topical BID Qty: 30 1RF Rx Instructions: Apply to both arms, face and neck twice daily until clear. atorvastatin 20 mg tablet 20 mg PO DAILY Qty: 90 4RF lisinopril-hydrochlorothiazide 10-12.5 mg tablet 1 tab PO DAILY Qty: 90 4RF Rx Instructions: take in a.m. sildenafil [Viagra] 100 mg tablet 100 mg PO DAILY PRN (Reason: sexual activity) Qty: 3 8RF Rx Instructions: administer 1 to 1.5 hours before activity ibuprofen 800 mg tablet 800 mg PO BID PRN (Reason: pain, moderate) Qty: 60 0RF Discharge Instructions Instructions: Cellulitis (ED), Elbow Bursitis (ED) Additional Instructions: 1. Had an infected right olecranon bursa and may want to continue cephalexin 500 mg every 6 hours for 10 days. In addition, we are adding clindamycin 300 mg every 6 hours 10 days. Asked the pharmacist to recommend an [id number]-mqyvqea probiotic to take while on antibiotics. 2. The orthopedic clinic should reach out with an appointment to review on May 15. 3. Return here for any worsening symptoms such as increasing redness, increasing pain, fever, chills or any concerns. Discharge Data Discharge Physician: Mariela Doyle Medical Decision Making This is an immunocompetent [id number] 63-year-old male who presents with increasing redness over the right elbow after being diagnosed with olecranon bursitis and placed on cephalexin. His symptoms began a week ago and he presents today after being referred from [facility] care for increasing pain and redness. Needle aspiration reveals purulent material. I will consult orthopedics and send a Gram stain and culture. I will write for IV cefazolin and IV vancomycin Differential Diagnosis Differential Diagnosis: Septic right olecranon bursitis,traumatic bursitits, septic joint Medical Records Medical records reviewed: Yes I reviewed the patient's medical records. Imaging Data Radiologic Study: Imaging: X-Ray (Right elbow) Radiologist's impression: There is significant swelling of the soft tissues posterior to the elbow and upper forearm. There is no obvious radiopaque foreign body. Nevertheless, infectious etiology is the main consideration. There is no evidence of osteomyelitis. No obvious elbow joint effusion. Incidental findings of what appears to be chronic epicondylitis findings bilaterally. Also posterior calcification measuring 5 x 3 mm which may be avulsion injury off the triceps attachment site on the posterior olecranon fossa. Lab Data Lab results reviewed: Yes I reviewed the patient's lab results. HPI General Date/Time Provider Initiated Documentation: 05/10/23 14:10. Limitations to Documentation: no limitations. Information obtained by: patient. History of Present Illness with intensity rated at 1. Quality is described as aching, and is localized to the upper extremity (Elbow). HPI Narrative: Time seen was 1530 in bed 6. The patient is a 63-year-old immunocompetent uyoab-dohi-igikyaol male who presents with right elbow pain and swelling which began 1 week ago. He was seen in [facility] and diagnosed with septic olecranon bursitis and placed on cephalexin which he has been taking as prescribed. He is noticed increased swelling and redness extending both proximally and distally from the right elbow. He read presented to [facility] and was referred to the emergency department. He does have a history of a triceps tendon rupture and repair in [address] Giordano. He states that the pain is about the same or slightly worse. Currently the pain is 1 out of 10 in severity. He denies any fevers or chills. He does endorse decreased range of motion secondary to pain and swelling. He tells me that he did sustain a small abrasion to the elbow after his initial diagnosis. He denied any puncture wound abrasion or trauma prior to the onset of his symptoms although he does use his right arm and was leaning on his elbow before the symptoms began. The patient does not have any history of diabetes. He is no previous history of olecranon bursitis. He has no history of immunocompromise. Related Data Home Medications Medication Instructions Recorded Confirmed ibuprofen 800 mg tablet 800 mg PO BID PRN pain, moderate 08/12/20 05/10/23 #60 tabs triamcinolone acetonide 0.5 % 1 applic topical BID #30 grams 05/24/22 05/10/23 topical cream atorvastatin 20 mg tablet 20 mg PO DAILY #90 tabs 10/04/22 05/10/23 lisinopril 10 1 tab PO DAILY #90 tabs 10/04/22 05/10/23 mg-hydrochlorothiazide 12.5 mg tablet sildenafil 100 mg tablet (Viagra) 100 mg PO DAILY PRN sexual 10/04/22 05/10/23 activity #3 tabs fluticasone propionate 50 1 spray intranasal DAILY #16 grams 12/22/22 05/10/23 mcg/actuation nasal spray,suspension (Flonase Allergy Relief) cephalexin 500 mg capsule 500 mg PO QID #40 caps 05/07/23 05/10/23 cephalexin 500 mg tablet 500 mg PO QID 10 days #40 tabs 05/10/23 clindamycin HCl 300 mg capsule 300 mg PO Q6H 10 days #40 caps 05/10/23 Previous Rx's Medication Instructions Recorded ibuprofen 800 mg tablet 800 mg PO BID PRN pain, moderate 08/12/20 #60 tabs triamcinolone acetonide 0.5 % 1 applic topical BID #30 grams 05/24/22 topical cream atorvastatin 20 mg tablet 20 mg PO DAILY #90 tabs 10/04/22 lisinopril 10 1 tab PO DAILY #90 tabs 10/04/22 mg-hydrochlorothiazide 12.5 mg tablet sildenafil 100 mg tablet (Viagra) 100 mg PO DAILY PRN sexual 10/04/22 activity #3 tabs fluticasone propionate 50 1 spray intranasal DAILY #16 grams 12/22/22 mcg/actuation nasal spray,suspension (Flonase Allergy Relief) cephalexin 500 mg capsule 500 mg PO QID #40 caps 05/07/23 cephalexin 500 mg tablet 500 mg PO QID 10 days #40 tabs 05/10/23 clindamycin HCl 300 mg capsule 300 mg PO Q6H 10 days #40 caps 05/10/23 Allergies Allergy/AdvReac Type Severity Reaction Status Date / Time WOOD PRESERVATIVES Allergy Mild Skin Rash Uncoded 05/10/23 13:52 General Stated Complaint: Cellulitis MICHAEL: 3 Review of Systems Narrative: No fever, no chills. Increasing redness and swelling of the right elbow All systems reviewed & are unremarkable except as noted in HPI and below PFSH All Active Problems (Updated 05/10/23 @ 17:51 by Mariela Doyle MD) Septic olecranon bursitis of right elbow (Acute) Right arm cellulitis (Acute) Foot pain (Acute) Elevated PSA (Acute) Hyperlipidemia (Acute) Hx of [place]-Schl[place] disease (Acute) Chondromalacia, right knee (Acute) Hypertension (Chronic) Heavy alcohol use (Acute) Mostly beer= 6 pack/daily Derangement of left shoulder joint (Acute) Bursitis of left shoulder (Acute) Tendinitis of long head of biceps brachii of left shoulder (Acute) Scapular dyskinesis (Acute) Rupture of right triceps tendon (Acute ~02/06/20) Rosacea (Acute) Medical History COVID-19 Diagnosed 07/02/21 Jannsen vaccine 01/30/21 Fracture of greater tuberosity of left humerus (09/08/19) HTN (hypertension) Left rotator cuff tear Repaired surgically Olecranon bursitis of right elbow (~04/2023) Surgical History H/O abdominal surgery Hx of meniscectomy of right knee Hx of surgical 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 Social History Smoking/Tobacco Use Status: Former Tobacco Use Smoking risk assessment performed?: Yes Alcohol Intake: current Alcohol Intake frequency: 3 or more drinks per day Alcohol type: beer and hard liquor Previous attempts at quittin Counseling given: Yes Counseling provided: reduce to 2 or less/day and other Drug use: Daily Substance use type: marijuana Caregiver/Support person: No Household members: none Housing: house Communication Needs: Hard of Hearing Do you need help understanding health information?: Rarely Pets and animals: No Sexually active: Yes Do you think of yourself as: straight/heterosexual Current gender identity: male What is your relationship status?: refused to answer How often do you talk on the phone with friends or family?: three or more times per week How often do you get together with friends or relatives?: three or more times per week How often do you attend orthodoxy or denominational services?: decline to answer Do you belong to any clubs or organized social groups?: no Panel score (0-1 are the most socially isolated patients): 1 What type of physical activity do you participate in: none Frequency: does not exercise Akua/Sikh: None Special akua needs: No Seatbelt use: never Helmet use: No Do you feel safe at home: Yes Do you feel safe in your relationship?: Yes Exam Const General: cooperative, healthy appearing, comfortable, no acute distress, well developed, well groomed and well hydrated Nutritional Appearance: average body habitus and well nourished Orientation: alert, awake and oriented x3 HENMT Head: normal to inspection, normocephalic and atraumatic Ears: hearing grossly normal bilaterally and external ears normal General nose exam: external nose normal, nares normal and no nasal discharge Face and sinus: normal facial exam, sinuses nontender and face symmetric Mouth: oral mucosae normal, lip normal, tongue normal, oropharynx normal, moist mucous membranes and other (Normal phonation. The patient is handling secretions.) Throat: posterior oropharynx normal and uvula midline Eyes General: appearance normal, both eyes and all related structures Eyelids: eyelids normal Conjunctivae: conjunctivae normal Sclera: sclerae normal Cornea: corneas normal Pupils: PERRL EOM: EOM intact bilaterally and No nystagmus Neck Neck: normal visual inspection, full ROM, no lymphadenopathy, no meningeal signs, trachea midline and supple Lymphatic: no lymphadenopathy noted Chest Chest: normal inspection of the chest Resp Effort & Inspection: normal respiratory effort, able to speak in complete sentences, no audible wheezes, no nasal flaring, no respiratory distress, no retractions, no stridor, not tachypneic, no tracheal deviation, no use of accessory muscles, No prolonged expiratory phase and other (Normal inspiratory to expiratory ratio.) Auscultation: clear to auscultation bilaterally, no rales, no rhonchi, no wheezes and no rubs Tactile Fremitus: tactile fremitus absent Cardio Jugular venous pressure: no JVD Palpation: normal PMI Rate: regular rate Rhythm: regular rhythm Heart Sounds: S1 normal, S2 normal, no gallops, no murmurs and no rubs GI Inspection: normal to inspection and non-distended Palpation: soft, no hepatosplenomegaly, no guarding and nontender Percussion: normal to percussion Auscultation: normal bowel sounds General: No CVA tenderness Back/Spine/Pelvis Back: no CVA tenderness and No back tenderness Cervical Spine: normal cervical lordosis, cervical ROM normal, No cervical muscular tenderness, No pain with cervical ROM, No cervical spinal tenderness and No step off deformity Thoracic/Lumbar Spine: thoracic and lumbar spine normal to inspection, No thoracic spinal tenderness and No lumbar spinal tenderness Pelvis: no pain with anterior-posterior compression and no pain with lateral compression Skin General skin exam: turgor normal, no petechiae, no purpura and other (Skin is normal for ethnicity.) Rashes: no rashes Other: The patient's skin is warm and dry normal for ethnicity. There is swelling over the right olecranon bursa with warmth and erythema extending 3 to 4 cm both proximally and distally. He has slight decreased range of motion but does not have severe pain with flexion and extension. He cannot fully extend his elbow but can extend to about 145 degrees. He can flex to about 30 degrees. He has good supination pronation. The shoulder right wrist and hand have full range of motion. He is neurovascularly intact distal to the elbow. There is no axillary adenopathy. There is no lymphangitis or subcutaneous emphysema. Neuro General: patient alert, patient awake, patient oriented x3, moves all extremities, no meningeal signs, no focal motor deficits and CN's II-XI intact bilaterally Cranial Nerves: CN's II-XI intact bilaterally, PERRL, accommodation normal, EOM intact bilaterally, no nystagmus, facial strength normal, tongue midline, hearing normal and no nystagmus Cognition: normal cognition Speech: speech normal Gait: normal gait Motor: muscle tone normal throughout and strength 5/5 throughout Sensory Exam: no sensory deficits noted Extrem General: capillary refill normal Other: The patient does have some arthritic changes in his hands but is moving all of his extremities except the right elbow normally. The right elbow reveals a well-healed surgical scar over the elbow with swelling redness and fluctuance over the olecranon bursa on the right. Range of motion is described above. The area is warm to the touch. No evidence of lymphangitis. He is able to move his elbow joint without pain. He is neurovascularly intact distal to the right elbow. Psych Appearance: grossly normal Affect: normal affect Attitude: cooperative Thought Process: normal Thought Content: normal Insight: insight good Judgment: judgment good Other: The patient appears to have capacity make medical decisions. Course I discussed the case with ortho PA Valente Plascencia who discussed with Dr. Giordano, who requested an xray of the elbow and adding MRSA coverage, and they will follow up with the patient in clinic on 05/15 Reevaluation(s) Initial Evaluation: After review of the interaction of Bactrim with the patient's antihypertensive I have elected to prescribe clindamycin instead of trimethoprim/sulfamethoxazole. I have told the patient to return here for any new or worsening symptoms and to continue to cephalexin and to add clindamycin for antibiotic coverage. I have advised him to return for any new or worrisome symptoms including fevers,, increasing redness or pain, or any new or worrisome symptoms. Vital Signs Vital signs: Vital Signs Temperature 36.8 C 05/10/23 13:48 Pulse 63 05/10/23 13:48 Respiratory Rate 18 05/10/23 13:48 Blood Pressure 122/65 05/10/23 13:48 Pulse Oximetry 99 05/10/23 13:48 Temperature 36.8 C 05/10/23 13:48 Temperature Source Skin 05/10/23 13:48 Pulse 63 05/10/23 14:45 Respiratory Rate 16 05/10/23 14:45 Respiratory Effort Normal 05/10/23 13:52 Blood Pressure 106/64 05/10/23 14:45 Blood Pressure Position Sitting 05/10/23 13:48 Pulse Oximetry 100 05/10/23 14:45 Oxygen Delivery Method Room Air 05/10/23 14:45 Oxygen Flow Rate 0 05/10/23 14:45 Pain Level 1 05/10/23 13:48 Lab/Test Results Lab/Test Results: 05/10/23 14:55 Blood Blood Culture - Pending 05/10/23 14:10 Blood Blood Culture - Pending Laboratory Tests Range/Units 05/10/23 05/10/23 05/10/23 14:55 14:55 14:55 WBC (4.4-10.8) 10^3/uL RBC (4.36-5.78) 10^6/uL Hgb (13.5-17.5) g/dL Hct (40.0-50.0) % MCV (80-95) fL MCH (27.0-33.0) pg MCHC (32.0-36.0) % RDW (11.8-14.1) % Plt Count (130-400) 10^3/uL MPV (8.0-11.0) fL Immature Gran % Neutrophils % Lymphocytes % Monocytes % Eosinophils % Basophils % Nucleated RBC % (0.0-0.3) % Absolute Neutrophils (1.2-6.7) 10^3/uL Absolute Lymphocytes (1.2-3.4) 10^3/uL Absolute Monocytes (0.1-0.8) 10^3/uL Absolute Eosinophils (0.0-0.7) 10^3/uL Absolute Basophils (0.0-0.2) 10^3/uL ESR (0-20) mm/hr 19 VBG Lactate (0.6-1.4) mmol/L 0.6 Sodium (136-145) mmol/L 139 Potassium (3.5-5.1) mmol/L 4.3 Chloride (98-107) mmol/L 102 Carbon Dioxide (21.0-32.0) mmol/L 26.9 Anion Gap (3-11) mmol/L 10.1 BUN (7-18) mg/dL 34 H Creatinine (0.70-1.30) mg/dL 1.4 H Est GFR (CKD-EPI 2020) (mL/min/1.73m2) 56.83 Glucose (74-106) mg/dL 106 Calcium (8.5-10.1) mg/dL 9.0 Total Bilirubin (0.2-1.0) mg/dL 0.4 AST (15-37) U/L 21 ALT (16-63) U/L 26 Alkaline Phosphatase (46-116) U/L 91 C-Reactive Protein (0.0-0.3) mg/dL 10.02 H Total Protein (6.4-8.2) g/dL 7.9 Albumin (3.4-5.0) g/dL 3.5 Range/Units 05/10/23 14:55 WBC (4.4-10.8) 10^3/uL 10.42 RBC (4.36-5.78) 10^6/uL 4.23 L Hgb (13.5-17.5) g/dL 12.7 L Hct (40.0-50.0) % 38.7 L MCV (80-95) fL 92 MCH (27.0-33.0) pg 30.0 MCHC (32.0-36.0) % 32.8 RDW (11.8-14.1) % 12.8 Plt Count (130-400) 10^3/uL 300 MPV (8.0-11.0) fL 9.3 Immature Gran % 0.5 Neutrophils % 75.5 Lymphocytes % 12.6 Monocytes % 8.3 Eosinophils % 2.6 Basophils % 0.5 Nucleated RBC % (0.0-0.3) % 0.0 Absolute Neutrophils (1.2-6.7) 10^3/uL 7.88 H Absolute Lymphocytes (1.2-3.4) 10^3/uL 1.31 Absolute Monocytes (0.1-0.8) 10^3/uL 0.86 H Absolute Eosinophils (0.0-0.7) 10^3/uL 0.27 Absolute Basophils (0.0-0.2) 10^3/uL 0.05 ESR (0-20) mm/hr VBG Lactate (0.6-1.4) mmol/L Sodium (136-145) mmol/L Potassium (3.5-5.1) mmol/L Chloride (98-107) mmol/L Carbon Dioxide (21.0-32.0) mmol/L Anion Gap (3-11) mmol/L BUN (7-18) mg/dL Creatinine (0.70-1.30) mg/dL Est GFR (CKD-EPI 2020) (mL/min/1.73m2) Glucose (74-106) mg/dL Calcium (8.5-10.1) mg/dL Total Bilirubin (0.2-1.0) mg/dL AST (15-37) U/L ALT (16-63) U/L Alkaline Phosphatase (46-116) U/L C-Reactive Protein (0.0-0.3) mg/dL Total Protein (6.4-8.2) g/dL Albumin (3.4-5.0) g/dL Procedures Other Description: Needle aspiration of the right olecranon bursa. After verbal consent and appropriate timeout, the area was prepped and draped in sterile fashion. 1 mL local anesthetic with 1% lidocaine with epinephrine was placed over the area of fluctuance with good resulting anesthesia. The area was anesthetized with a 25-gauge needle. An 18-gauge needle was used to aspirate the bursa and 4 cc of purulent material was removed. A Gram stain and culture was sent. The patient tolerated the procedure well a dressing will be placed by the nursing staff. PAWSS Have you Ever Experienced Previous Episodes of Alcohol Withdrawal?: No Have you ever Experienced Withdrawal Seizures?: No Have you ever Experienced Delirium Tremens(DT)s?: No Have you ever undergone Alcohol Rehabilitation Treatment (i.e, inpt ot outpatient treatment programs)?: No Have you ever Experienced Blackouts?: No Have you ever Combined Alcohol with other Downers within the last 90 days?: No Have you ever Combined Alcohol with any other Substance of Abuse during the last 90 days?: No Positive Blood Alcohol level on Presentation? [PCS.BAL]: No Evidence of Increased Autonomic Activity (i.e. HR>120, tremor, sweating, agitation, nausea)?: No Result: 0
[2023-05-10] MEDS: ceFAZolin 1 GM/50 ML BAG IVPB (16:03)
--- NOTE | 2023-05-10 16:40 | W.ORTHOCONSU ---
Date of service: 05/10/23 Time of Service: 16:40 Assessment and Plan Assessment and plan (1) Right arm cellulitis: Status: Acute (2) Olecranon bursitis of right elbow: Assessment and plan: 63-year-old gentleman, [id number], evaluated in room 6 in the ER with right arm cellulitis and olecranon bursitis. Patient reports nontraumatic swelling of the right elbow that began approximately 1 week ago, slightly red and minimally uncomfortable. Seen at the urgent care and placed on Keflex. Patient again seen at the urgent care today as the swelling and the redness has spread. He denies fever, drainage, numbness, tingling, weakness. Denies rash elsewhere on his body. He does report history of olecranon bursitis several years ago. Consultation requested from the ED. Needle aspiration performed by Dr. Doyle describes bloody, purulent drainage. Sent to lab for culture. IV cephalosporin has been given. Laboratory values obtained, white blood cell count normal at 10.42, ESR 19, lactate 0.6. CRP is elevated at 10.02. Patient appears well, nontoxic, speaks in full sentences. Radial pulse in the 60s. Right arm exam, shoulder, wrist, hand unremarkable. Full range of motion. Elbow with full extension. Patient can flex to just above 90 degrees, states that after this the posterior aspect of his elbow feels tight. Posteriorly there is mild discomfort, swelling, surrounding warmth and erythema. No lymphangitic streaking. There is mild discomfort to the posterior elbow otherwise no discomfort to palpation over any bony prominences or the antecubital region. At this time patient appears well, nontoxic, afebrile. White blood cell count is normal at 10.42. Only inflammatory marker is elevated CRP of 10.02. Plan to initiate broad-spectrum antibiotics at the discretion of ER provider, discussed MRSA coverage such as single dose of IV Vanco in the ER with oral Bactrim versus IV and oral clindamycin therapy. Discussed bulky compression dressing, 4 x 4 padding to the posterior elbow then wrapped with a 6 inch Tone wrap. Discussed warm moist compresses as well as cool compresses. Patient is to return to the ER over the weekend for new or evolving symptoms. Otherwise he will follow-up in the orthopedic clinic on Sunday. No evidence of septic joint. This began as what sounds like olecranon bursitis and now subsequently has a surrounding cellulitis. Patient counseled regarding elevation, compression/padding protection, and encouraging elbow range of motion to prevent stiffness. History of right elbow triceps tendon repair and olecranon bursa excision February 2020. Right elbow x-rays recommended to the ER, obtained, and reviewed showing stable bony changes about the olecranon with overlying soft tissue edema. We can follow with the aspiration labs on Sunday to help guide antimicrobial therapy and clinically to determine the need for additional elbow surgery. Counseled regarding signs and symptoms of worsening infection, which should prompt return to the emergency department. PFSH All Active Problems Right arm cellulitis (Acute) Foot pain (Acute) Elevated PSA (Acute) Hyperlipidemia (Acute) Hx of Filiberto-Schlatter disease (Acute) Chondromalacia, right knee (Acute) Hypertension (Chronic) Heavy alcohol use (Acute) Mostly beer= 6 pack/daily Derangement of left shoulder joint (Acute) Bursitis of left shoulder (Acute) Tendinitis of long head of biceps brachii of left shoulder (Acute) Scapular dyskinesis (Acute) Rupture of right triceps tendon (Acute ~02/06/20) Rosacea (Acute) Medical History COVID-19 Diagnosed 07/02/21 Jannsen vaccine 01/30/21 Fracture of greater tuberosity of left humerus (09/08/19) HTN (hypertension) Left rotator cuff tear Repaired surgically Olecranon bursitis of right elbow (~04/2023) Surgical History H/O abdominal surgery Hx of meniscectomy of right knee Hx of surgical 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 Social History Smoking/Tobacco Use Status: Former Tobacco Use Smoking risk assessment performed?: Yes Alcohol Intake: current Alcohol Intake frequency: 3 or more drinks per day Alcohol type: beer and hard liquor Previous attempts at quittin Counseling given: Yes Counseling provided: reduce to 2 or less/day and other Drug use: Daily Substance use type: marijuana Caregiver/Support person: No Household members: none Housing: house Communication Needs: Hard of Hearing Do you need help understanding health information?: Rarely Pets and animals: No Sexually active: Yes Do you think of yourself as: straight/heterosexual Current gender identity: male What is your relationship status?: refused to answer How often do you talk on the phone with friends or family?: three or more times per week How often do you get together with friends or relatives?: three or more times per week How often do you attend scientologist or pentecostal services?: decline to answer Do you belong to any clubs or organized social groups?: no Panel score (0-1 are the most socially isolated patients): 1 What type of physical activity do you participate in: none Frequency: does not exercise Akua/Voodoo: None Special akua needs: No Seatbelt use: never Helmet use: No Do you feel safe at home: Yes Do you feel safe in your relationship?: Yes Results Last Vital Signs Temp 36.8 C 05/10/23 13:48 Pulse 63 05/10/23 14:45 Resp 16 05/10/23 14:45 BP 106/64 05/10/23 14:45 Pulse Ox 100 05/10/23 14:45 Labs 05/10/23 14:55 05/10/23 14:55 Labs: Laboratory Results - last 24 hr 05/10/23 05/10/23 05/10/23 14:55 14:55 14:55 WBC RBC Hgb Hct MCV MCH MCHC RDW Plt Count MPV Immature Gran % Neutrophils % Lymphocytes % Monocytes % Eosinophils % Basophils % Nucleated RBC % Absolute Neutrophils Absolute Lymphocytes Absolute Monocytes Absolute Eosinophils Absolute Basophils ESR 19 VBG Lactate 0.6 Sodium 139 Potassium 4.3 Chloride 102 Carbon Dioxide 26.9 Anion Gap 10.1 BUN 34 H Creatinine 1.4 H Est GFR (CKD-EPI 2020) 56.83 Glucose 106 Calcium 9.0 Total Bilirubin 0.4 AST 21 ALT 26 Alkaline Phosphatase 91 C-Reactive Protein 10.02 H Total Protein 7.9 Albumin 3.5 05/10/23 14:55 WBC 10.42 RBC 4.23 L Hgb 12.7 L Hct 38.7 L MCV 92 MCH 30.0 MCHC 32.8 RDW 12.8 Plt Count 300 MPV 9.3 Immature Gran % 0.5 Neutrophils % 75.5 Lymphocytes % 12.6 Monocytes % 8.3 Eosinophils % 2.6 Basophils % 0.5 Nucleated RBC % 0.0 Absolute Neutrophils 7.88 H Absolute Lymphocytes 1.31 Absolute Monocytes 0.86 H Absolute Eosinophils 0.27 Absolute Basophils 0.05 ESR VBG Lactate Sodium Potassium Chloride Carbon Dioxide Anion Gap BUN Creatinine Est GFR (CKD-EPI 2020) Glucose Calcium Total Bilirubin AST ALT Alkaline Phosphatase C-Reactive Protein Total Protein Albumin
--- NOTE | 2023-05-10 17:00 | DI.RAD_ITS ---
Exam(s) XR ELBOW RT COMPLETE EXAM: XR ELBOW RT COMPLETE CLINICAL HISTORY: septic right olecranon bursitis. TECHNIQUE: 2D digital imaging was performed. COMPARISON: CR XR ELBOW RT COMPLETE from 09/13/2021 FINDINGS: 3 views No evidence of acute fracture nor elevation of the anterior fat pad to suggest joint effusion. Findi ngs of bilateral chronic epicondylitis noted. Also some degenerative change on the lateral aspect of the radial head. Posteriorly there is prominent soft tissue swelling over the olecranon bursa and dorsal aspect of the upper half of the forearm as well as above the elbow. In addition, there is a 5 x 3 mm calcific den sity seen posteriorly approximately 3 cm above the biceps tendon insertion site. Cannot exclude the fact that this may represent an avulsion injury off the posterior aspect of the olecranon. Correlati on with any clinical signs of triceps tendons in injury recommended. IMPRESSION: There is significant swelling of the soft tissues posterior to the elbow and upper forearm. There is no obvious radiopaque foreign body. Nevertheless, infectious etiology is the main consideration. T here is no evidence of osteomyelitis. No obvious elbow joint effusion. Incidental findings of what appears to be chronic epicondylitis findings bilaterally. Also posterior calcification measuring 5 x 3 mm which may be avulsion injury off the triceps attachme nt site on the posterior olecranon fossa. DATA REPOSITORY: RADIATION DOSE DELIVERED:
[2023-05-10] MEDS: VANCOMYCIN/WATER (PEG) 1 GM/200 ML BAG IV (17:43)
[2023-05-10 19:18] VITALS: BP 125/99; PULSE 68; RESP 18; TEMP 36.4; O2SAT 100
== END 2023-05-10 19:21 | disposition home or self-care (01) ==
PROVIDERS: Emergency Medicine Emergency Medical Services; Emergency Provider Emergency Medicine Emergency Medical Services; PCP Nurse Practitioner Family
DX: M70.21 Olecranon bursitis, right elbow; M00.9 Pyogenic arthritis, unspecified
CPT/HCPCS: 20605; 80053; 85652; 87040; 96365; 96366; 96367; 99284; 73080; 83605; 85025; 86140; 87070; 87205; J0690

== ENCOUNTER → 2023-07-20 00:42 | Outpatient (CLI) | payer OTHER, SELFPAY ==
--- NOTE | 2023-07-20 08:20 | DI.MRI_ITS ---
Exam(s) MR UPPER JOINT RT WO EXAM: MR UPPER JOINT RT WO CLINICAL HISTORY: pain, olecranon bursitis rt elbow, m70.21. TECHNIQUE: Multiplanar multisequence MRI was performed. COMPARISON: Right elbow 10 May 2023 FINDINGS: Joints: No joint effusion. Bones: There is no fracture or contusion pattern. Spurring at the radial tubercle. Spurring at the olecranon. Biceps tendon: Normal. Brachialis tendon: Normal. Common flexor tendons: Common extensor tendons: Triceps tendon: Severe thickening and edema. Severe partial tear involving the distal 2.5 cm of the tendon to the attachment. There are somewhat intact fibers at the radial aspect and a few intact fi bers far medially. Soft tissues: No evidence of olecranon bursitis. IMPRESSION: Severe partial tear of the triceps tendon. DATA REPOSITORY:
== END ==
PROVIDERS: PCP Nurse Practitioner Family; Visit Provider Student in an Organized Health Care Education/Training Program
DX: M70.21 Olecranon bursitis, right elbow (principal); S46.311A Strain of muscle, fascia and tendon of triceps, right arm, initial encounter; X58.XXXA Exposure to other specified factors, initial encounter
CPT/HCPCS: 73221

== ENCOUNTER → 2023-09-13 12:40 | Outpatient (CLI) | payer OTHER, SELFPAY ==
--- NOTE | 2023-09-13 10:45 | DI.RAD_ITS ---
Exam(s) XR SHOULDER LT COMPLETE 2+V EXAM: XR SHOULDER LT COMPLETE 2+V CLINICAL HISTORY: persistent pain, post fall,m25.512. TECHNIQUE: 2D digital imaging was performed of the left shoulder. Six images were obtained. AP, Gr ashey, Y-view and axillary views were obtained. COMPARISON: CR XR SHOULDER LT COMPLETE 2+V from 06/22/2020 FINDINGS: BONES: No acute fracture is present. No bony destructive lesion is seen. Postsurgical changes are see n in the proximal left humerus. JOINTS: No dislocation present. Mild degenerative changes are seen in the shoulder. SOFT TISSUE: The visualized lungs are clear. IMPRESSION: No acute or healing fracture or dislocation. DATA REPOSITORY: RADIATION DOSE DELIVERED:
== END ==
PROVIDERS: PCP Nurse Practitioner Family; Visit Provider Nurse Practitioner Family
DX: M25.512 Pain in left shoulder (principal); W19.XXXA Unspecified fall, initial encounter; Y99.0 Civilian activity done for income or pay
CPT/HCPCS: 73030

== ENCOUNTER 2023-09-19 17:22 | Emergency (ER) | payer OTHER, SELFPAY ==
[2023-09-19] VITALS (53 sets, daily range): BP systolic 98–129; BP diastolic 52–83; PULSE 63–84; RESP 11–27; TEMP 36.6–36.7; O2SAT 97–98
[2023-09-19 17:46] LABS: Abs Immature Grans 0.02 10^3/uL (0.0-0.06); HCT 42.8 % (40.0-50.0); HGB 14.4 g/dL (13.5-17.5); MCH 30.6 pg (27.0-33.0); MCHC 33.6 % (32.0-36.0); MCV 91 fL (80-95); MPV 9.4 fL (8.0-11.0); Platelet Count 261 10^3/uL (130-400); RBC 4.71 10^6/uL (4.36-5.78); RDW 12.6 % (11.8-14.1); RDW-SD 41.4 fL; WBC 5.84 10^3/uL (4.4-10.8)
--- NOTE | 2023-09-19 17:48 | ED.GENADUL_ITS ---
Discharge Plan Disposition Patient Disposition: Home Condition: Improving Discharge Details Clinical Impression: Angioedema Primary Care Provider: Guanakito Jay ED Provider: Fabio Back Home Meds and New Rx's Prescriptions: Continued fluticasone propionate [Flonase Allergy Relief] 50 mcg/actuation spray,suspension 1 spray intranasal DAILY Qty: 16 3RF Rx Instructions: administer into each nostril prednisone 10 mg tablet 10 mg PO DIRECTED Qty: 20 0RF Patient Comments: prescribed 09/19/23 @ [facility] Rx Instructions: take 40mg x2 days, then 30mg x2 days, then 20mg x2 days, then 10mg x2 days triamcinolone acetonide 0.5 % cream 1 applic topical BID Qty: 30 1RF Rx Instructions: Apply to both arms, face and neck twice daily until clear. atorvastatin 20 mg tablet 20 mg PO DAILY Qty: 90 4RF sildenafil [Viagra] 100 mg tablet 100 mg PO DAILY PRN (Reason: sexual activity) Qty: 3 8RF Rx Instructions: administer 1 to 1.5 hours before activity ibuprofen 800 mg tablet 800 mg PO BID PRN (Reason: pain, moderate) Qty: 60 0RF Discontinued lisinopril-hydrochlorothiazide 10-12.5 mg tablet 1 tab PO DAILY Qty: 90 4RF Hold Instructions: Adverse Reaction Rx Instructions: take in a.m. Discharge Instructions Instructions: Angioedema (ED) Additional Instructions: Please discontinue lisinopril as this likely caused your angioedema. Discussed with your primary care physician alternative therapies for high blood pressure. Please return to the emergency department for any worsening symptoms Medical Decision Making 63-year-old male presents with angioedema of upper lip maxillary region and small area of lower lip, no oropharyngeal involvement, patient is tolerating secretions has normal voice hemodynamically stable normoxic. Likely TASHI inhibitor related angioedema. No family history of angioedema. Solu-Medrol given before arrival, have added Benadryl. Will observe patient here in department. If symptoms begin to resolve consider discharge home versus admission for observation. 20: 37 patient resting comfortably, upper lip and maxillary swelling is reducing, slight increase of lower lip swelling. No oral or pharyngeal involvement. Tolerating secretions normal voice resting comfortably. Will continue to observe 23: 09 angioedema greatly improved. Normal voice tolerating secretions. No oropharyngeal involvement. Patient struck to discontinue his lisinopril follow- up close with the primary care physician. Given strict return precautions for any worsening symptoms HPI General Date/Time Provider Initiated Documentation: 09/19/23 17:27 . HPI Narrative: 63-year-old male presents with 4 hours of facial swelling involving his upper lip and portion of his lower lip, denies trouble swallowing or breathing. No nausea vomiting lightheadedness or rash. Similar episode 3 weeks ago. Patient was given Solu-Medrol 80 mg at [facility]. Patient does take lisinopril. No family history of angioedema Related Data Home Medications Medication Instructions Recorded Confirmed ibuprofen 800 mg tablet 800 mg PO BID PRN pain, moderate 08/12/20 09/19/23 #60 tabs triamcinolone acetonide 0.5 % 1 applic topical BID #30 grams 05/24/22 09/19/23 topical cream atorvastatin 20 mg tablet 20 mg PO DAILY #90 tabs 10/04/22 09/19/23 sildenafil 100 mg tablet (Viagra) 100 mg PO DAILY PRN sexual 10/04/22 09/19/23 activity #3 tabs fluticasone propionate 50 1 spray intranasal DAILY #16 grams 12/22/22 09/19/23 mcg/actuation nasal spray,suspension (Flonase Allergy Relief) prednisone 10 mg tablet 10 mg PO DIRECTED #20 tabs 09/19/23 09/19/23 Previous Rx's Medication Instructions Recorded ibuprofen 800 mg tablet 800 mg PO BID PRN pain, moderate 08/12/20 #60 tabs triamcinolone acetonide 0.5 % 1 applic topical BID #30 grams 05/24/22 topical cream atorvastatin 20 mg tablet 20 mg PO DAILY #90 tabs 10/04/22 sildenafil 100 mg tablet (Viagra) 100 mg PO DAILY PRN sexual 10/04/22 activity #3 tabs fluticasone propionate 50 1 spray intranasal DAILY #16 grams 12/22/22 mcg/actuation nasal spray,suspension (Flonase Allergy Relief) prednisone 10 mg tablet 10 mg PO DIRECTED #20 tabs 09/19/23 Allergies Allergy/AdvReac Type Severity Reaction Status Date / Time WOOD PRESERVATIVES Allergy Mild Skin Rash Uncoded 09/19/23 17:34 General Stated Complaint: FacialProb MICHAEL: 2 Review of Systems Narrative: Review of Systems Constitutional: negative Eyes: negative ENT: Facial swelling Cardiovascular: negative Respiratory: negative Gastrointestinal: negative : negative Musculoskeletal: negative Skin: negative Neurologic: negative Psych: negative PFSH All Active Problems (Updated 09/19/23 @ 23:10 by Fabio Back MD) Angioedema (Acute) Left shoulder pain (Acute) Left facial swelling (Acute) Olecranon bursitis of right elbow (Acute ~04/2023) Right arm cellulitis (Acute) Foot pain (Acute) Elevated PSA (Acute) Hyperlipidemia (Acute) Hx of Bullhead-Schlatter disease (Acute) Chondromalacia, right knee (Acute) Hypertension (Chronic) Heavy alcohol use (Acute) Mostly beer= 6 pack/daily Derangement of left shoulder joint (Acute) Bursitis of left shoulder (Acute) Tendinitis of long head of biceps brachii of left shoulder (Acute) Scapular dyskinesis (Acute) Rupture of right triceps tendon (Acute ~02/06/20) Rosacea (Acute) Medical History Septic olecranon bursitis of right elbow COVID-19 Diagnosed 07/02/21 Jannsen vaccine 01/30/21 Fracture of greater tuberosity of left humerus (09/08/19) Left rotator cuff tear Repaired surgically HTN (hypertension) Surgical History Triceps tendon rupture Surgical repair on right. Hx of surgical amputation of finger Partial amp. left index finger Hx of meniscectomy of right knee H/O abdominal surgery No significant past surgical history Social History Smoking/Tobacco Use Status: Former Tobacco Use Smoking risk assessment performed?: Yes Alcohol Intake: current Alcohol Intake frequency: 3 or more drinks per day Alcohol type: beer and hard liquor Previous attempts at quittin Counseling given: Yes Counseling provided: reduce to 2 or less/day and other Drug use: Daily Substance use type: marijuana Caregiver/Support person: No Household members: none Housing: house Communication Needs: Hard of Hearing Do you need help understanding health information?: Rarely Pets and animals: No Sexually active: Yes Do you think of yourself as: straight/heterosexual Current gender identity: male What is your relationship status?: refused to answer How often do you talk on the phone with friends or family?: three or more times per week How often do you get together with friends or relatives?: three or more times per week How often do you attend jain or rastafari services?: decline to answer Do you belong to any clubs or organized social groups?: no Panel score (0-1 are the most socially isolated patients): 1 What type of physical activity do you participate in: none Frequency: does not exercise Akua/Hindu: None Special akua needs: No Seatbelt use: never Helmet use: No Do you feel safe at home: Yes Do you feel safe in your relationship?: Yes Exam Narrative Exam Narrative: Physical Examination General: alert, awake, cooperative, resting comfortably, no acute distress HEENT: normocephalic, atraumatic; PERRL, EOM intact, conjunctiva normal; no nasal discharge; moist mucous membranes, oral and pharyngeal mucosa normal, tolerating secretions; angioedema to upper lip and maxillary region as well as small portion of superficial lower lip; no tongue involvement no oropharyngeal involvement. No stridor; normal voice Neck: supple, trachea midline; full ROM Chest: normal to inspection Respiratory: normal respiratory effort, speaking in full sentences, clear to auscultation, no wheezing, rales or rhonchi Cardiac: regular rate, regular rhythm, S1S2 intact, no murmurs rubs or gallops GI: abdomen soft, non-tender, non-distended; no palpable mass or hepatosple nomegaly Skin: no lesions, rashes or trauma appreciated Neuro: AAOx3, normal speech, moving all extremities Psych: Appropriate mood and affect Course Vital Signs Vital signs: Vital Signs Temperature 36.6 C 09/19/23 17:25 Pulse 72 09/19/23 17:25 Respiratory Rate 16 09/19/23 17:25 Blood Pressure 114/80 09/19/23 17:25 Pulse Oximetry 98 09/19/23 17:25 Temperature 36.6 C 09/19/23 17:32 Pulse 72 09/19/23 17:32 Respiratory Rate 16 09/19/23 17:32 Blood Pressure 114/80 09/19/23 17:32 Blood Pressure Position Supine 09/19/23 17:32 Pulse Oximetry 98 09/19/23 17:32 PAWSS Have you Been Recently Intoxicated or Drunk Within the Last 30 days?: Yes Have you Ever Experienced Previous Episodes of Alcohol Withdrawal?: Yes Have you ever Experienced Withdrawal Seizures?: No Have you ever Experienced Delirium Tremens(DT)s?: No Have you ever undergone Alcohol Rehabilitation Treatment (i.e, inpt ot outpatient treatment programs)?: Yes Have you ever Experienced Blackouts?: No Have you ever Combined Alcohol with other Downers within the last 90 days?: No Have you ever Combined Alcohol with any other Substance of Abuse during the last 90 days?: No Result: 3
[2023-09-19] MEDS: diphenhydrAMINE 50 MG/ML VIAL 25 MG IVP (17:50)
[2023-09-19 18:00] LABS: ALT 49 U/L (16-63); AST 32 U/L (15-37); Albumin 3.8 g/dL (3.4-5.0); Alkaline Phosphatase 94 U/L (46-116); Anion Gap 7.3 mmol/L (3-11); BUN 27 mg/dL (7-18); Bilirubin, Total 0.3 mg/dL (0.2-1.0); CO2 28.7 mmol/L (21.0-32.0); CREATININE 1.6 mg/dL (0.70-1.30); Calcium 8.9 mg/dL (8.5-10.1); Chloride 100 mmol/L (98-107); Estimated GFR 48.41 (mL/min/1.73m2); Glucose 107 mg/dL (74-106); Potassium 4.3 mmol/L (3.5-5.1); Sodium 136 mmol/L (136-145); Total Protein 7.9 g/dL (6.4-8.2)
[2023-09-19 18:01] LABS: Absolute Eosinophil Count 0.18 10^3/uL (0.0-0.7); Absolute Lymphocyte Count 2.04 10^3/uL (1.2-3.4); Absolute Monocyte Count 0.64 10^3/uL (0.1-0.8); Absolute Neutrophil Count 2.98 10^3/uL (1.2-6.7); Atypical Lymphocytes % 6
[2023-09-19 18:02] LABS: Diff Comment Diff Reviewed; RBC Morphology Normal
--- NOTE | 2023-09-19 18:13 | NUR.NOTE ---
Nursing Note: patient sitting up on stretcher, using phone, denies any throat or tongue irritation at this time. Call light within reach, bed in lowest position.
== END 2023-09-19 23:16 | disposition home or self-care (01) ==
PROVIDERS: Emergency Provider Emergency Medicine; PCP Nurse Practitioner Family
DX: T78.3XXA Angioneurotic edema, initial encounter (principal); T88.7XXA Unspecified adverse effect of drug or medicament, initial encounter; T46.4X5A Adverse effect of angiotensin-converting-enzyme inhibitors, initial encounter; I10 Essential (primary) hypertension; Z87.891 Personal history of nicotine dependence
CPT/HCPCS: 36415; 80053; 96374; 96375; 99283; 85025; J1200

== ENCOUNTER → 2023-12-13 04:13 | Outpatient (CLI) | payer OTHER, SELFPAY ==
--- NOTE | 2023-12-13 07:00 | DI.MRI_ITS ---
Exam(s) MR UPPER JOINT LT WO EXAM: MR UPPER JOINT LT WO CLINICAL HISTORY: L SHOULDER INJURY, S/P REPAIR,PAIN,LT ROTATOR CUFF TEAR,M25.512,S46.012D. TECHNIQUE: Multiplanar multisequence MRI was performed. COMPARISON: Plain films 13 September 2023. MRI 07 July 2020 FINDINGS: BONES: There is no fracture or contusion pattern. Linear defect in anterior humeral head related to prior surgery. JOINTS:The acromioclavicular joint is normal. The glenohumeral joint is normal. Spurring at the tip of the acromion. TENDONS: Supraspinatus: Thickening and edema. No visible focal tear. Infraspinatus: Unremarkable. Subscapularis: Severe subscapularis muscle atrophy, unchanged from prior exam. Teres Minor: Unremarkable. Biceps and Miller: Not visualized. GLENOID LABRUM: Unremarkable on this noncontrast examination. SOFT TISSUES: Unremarkable. OTHER: Subacromial and subdeltoid bursae shows minimal fluid.. IMPRESSION: Supraspinatus tendinitis.. Severe subscapularis muscle atrophy, unchanged from prior. Long head of the biceps tendon not seen in field of view. Prior tendon repair. DATA REPOSITORY:
== END ==
PROVIDERS: PCP Nurse Practitioner Family; Visit Provider Student in an Organized Health Care Education/Training Program
DX: S46.012D Strain of muscle(s) and tendon(s) of the rotator cuff of left shoulder, subsequent encounter (principal); X58.XXXD Exposure to other specified factors, subsequent encounter
CPT/HCPCS: 73221

== ENCOUNTER 2024-01-09 12:15 | Emergency (ER) | payer OTHER, SELFPAY ==
[2024-01-09 12:22] VITALS: BP 144/90; PULSE 85; RESP 15; O2SAT 99
--- NOTE | 2024-01-09 12:30 | DI.RAD_ITS ---
Exam(s) XR FOOT LT COMPLETE EXAM: XR FOOT LT COMPLETE CLINICAL HISTORY: r/o foreign body, plantar puncture with natalia nail. TECHNIQUE: 2D digital imaging was performed. Three views. COMPARISON: No exams were available for comparison FINDINGS: BONES: No acute fracture is present. No bony destructive lesion is seen. 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 JOINTS: No dislocation present. SOFT TISSUE: Swelling at plantar aspect of foot. A BB marker was placed to indicate the area of punc ture wound. No foreign body is visible. IMPRESSION: Soft tissue swelling. No foreign body is visible. No evidence of fracture. DATA REPOSITORY: RADIATION DOSE DELIVERED:
--- NOTE | 2024-01-09 12:41 | ED.GENADUL_ITS ---
Discharge Plan Disposition Patient Disposition: Home Discharge Details Clinical Impression: Puncture wound of plantar aspect of left foot Primary Care Provider: Guanakito Jay ED Provider: Chantell Dillard Home Meds and New Rx's Prescriptions: Continued losartan 100 mg tablet 100 mg PO DAILY Qty: 90 3RF fluticasone propionate [Flonase Allergy Relief] 50 mcg/actuation spray,suspension 2 spray intranasal DAILY Qty: 16 2RF Rx Instructions: administer into each nostril triamcinolone acetonide 0.5 % cream 1 applic topical BID Qty: 30 1RF Rx Instructions: Apply to both arms, face and neck twice daily until clear. atorvastatin 20 mg tablet 20 mg PO DAILY Qty: 90 4RF amlodipine 5 mg tablet 5 mg PO DAILY Qty: 90 3RF sildenafil [Viagra] 100 mg tablet 100 mg PO DAILY PRN (Reason: sexual activity) Qty: 3 8RF Rx Instructions: administer 1 to 1.5 hours before activity Discharge Instructions Instructions: Puncture Wound (ED) Additional Instructions: Please follow up at the end of the week at [facility] for a reevaluation. Keep your wound clean and dry. Wash daily with antibacterial soap and water daily. Apply a nonstick bandage. Keep wound clean and dry. Watch out for signs of infection such as redness, pus drainage, swelling, or increasing pain. These are signs of infection requiring emergent evaluation and antibiotics. Seek care immediately. Referrals: Guanakito Jay, COKE STILL CLEANER [Primary Care Provider] - [facility] General Date/Time Provider Initiated Documentation: 01/09/24 12:30 . HPI Narrative: Shayne is a 63-year-old male with history of hypertension who presents to the emergency department today for evaluation of left plantar puncture wound. He reports that he was walking around in his boots when he stepped on a nail poking out of a board. He says it was approximately 1/8 inch nail, sticking out of the board couple of inches, says he did not get it that far in his foot because he had lifted his foot up as soon as he felt it come through his sock. He has been able to walk after the incident. Pain is rated 2 out of 10. Scant bleeding. Nail was able to be fully removed. Last tetanus was in 2019. No history of immunocompromise. Related Data Home Medications Medication Instructions Recorded Confirmed triamcinolone acetonide 0.5 % 1 applic topical BID #30 grams 05/24/22 01/09/24 topical cream atorvastatin 20 mg tablet 20 mg PO DAILY #90 tabs 11/08/23 01/09/24 losartan 100 mg tablet 100 mg PO DAILY #90 tabs 11/16/23 01/09/24 fluticasone propionate 50 2 spray intranasal DAILY #16 grams 12/05/23 01/09/24 mcg/actuation nasal spray,suspension (Flonase Allergy Relief) amlodipine 5 mg tablet 5 mg PO DAILY #90 tabs 12/12/23 01/09/24 sildenafil 100 mg tablet (Viagra) 100 mg PO DAILY PRN sexual 12/12/23 01/09/24 activity #3 tabs Previous Rx's Medication Instructions Recorded triamcinolone acetonide 0.5 % 1 applic topical BID #30 grams 05/24/22 topical cream atorvastatin 20 mg tablet 20 mg PO DAILY #90 tabs 11/08/23 losartan 100 mg tablet 100 mg PO DAILY #90 tabs 11/16/23 fluticasone propionate 50 2 spray intranasal DAILY #16 grams 12/05/23 mcg/actuation nasal spray,suspension (Flonase Allergy Relief) amlodipine 5 mg tablet 5 mg PO DAILY #90 tabs 12/12/23 sildenafil 100 mg tablet (Viagra) 100 mg PO DAILY PRN sexual 12/12/23 activity #3 tabs Allergies Allergy/AdvReac Type Severity Reaction Status Date / Time lisinopril Allergy Severe Angio Edema Uncoded 01/09/24 12:35 WOOD PRES[employer]IVES Allergy Mild Skin Rash Uncoded 01/09/24 12:35 General Stated Complaint: Trauma MICHAEL: 4 Review of Systems Narrative: see HPI Exam Const General: cooperative, healthy appearing, comfortable and no acute distress Resp Effort & Inspection: normal respiratory effort and able to speak in complete sentences Skin Trauma: puncture (L plantar midfoot) Extrem General: normal to inspection, full ROM, capillary refill normal, no joint enlargement, no clubbing, cyanosis or edema and no pedal edema Course Vital Signs Vital signs: Vital Signs Pulse 85 01/09/24 12:22 Respiratory Rate 15 01/09/24 12:22 Blood Pressure 144/90 H 01/09/24 12:22 Pulse Oximetry 99 01/09/24 12:22 Pulse 85 01/09/24 12:22 Respiratory Rate 15 01/09/24 12:22 Respiratory Effort Normal, Non-Labored 01/09/24 12:26 Respiratory Depth Normal 01/09/24 12:26 Respiratory Pattern Normal 01/09/24 12:26 Blood Pressure 144/90 H 01/09/24 12:22 Blood Pressure Position Supine 01/09/24 12:22 Pulse Oximetry 99 01/09/24 12:22 Oxygen Delivery Method Room Air 01/09/24 12:22 Oxygen Flow Rate 0 01/09/24 12:22 Pain Level 3 01/09/24 12:26 Medical Decision Making Shayne is a 63-year-old male with history of hypertension who presents to the emergency department today for evaluation of left plantar puncture wound. He reports that he was walking around in his boots when he stepped on a nail poking out of a board. He says it was approximately 1/8 inch nail, sticking out of the board couple of inches, says he did not get it that far in his foot because he had lifted his foot up as soon as he felt it come through his sock. He has been able to walk after the incident. Pain is rated 2 out of 10. Scant bleeding. Nail was able to be fully removed. Last tetanus was in 2019. No history of immunocompromise. Physical exam remarkable for puncture wound to the plantar aspect of the L foot in the forefoot region. Scant bleeding. No surrounding erythema or tenderness. No foreign body visualized. No tenderness with palpation along metatarsals or toes. History and presentation consistent with uncomplicated puncture wound with a natalia nail. No concern at this time for infection based on timeline and patient presentation. X-ray of foot obtained to rule out foreign body, no foreign body or fractures visualized. Wound was cleansed extensively with chlorhexidine and irrigated using a syringe by hydrotechnical specialist. Patient tolerated procedure well. Reviewed discharge instructions with patient, including wound care and red flags indicate need for return to emergency care. Advised him to follow-up with PCP's office on Sunday, may go to express care if needed. He is agreeable with plan of care. Imaging Data Radiologic Study: Radiologist's impression: Exam(s) XR FOOT LT COMPLETE EXAM: XR FOOT LT COMPLETE CLINICAL HISTORY: r/o foreign body, plantar puncture with natalia nail. TECHNIQUE: 2D digital imaging was performed. Three views. COMPARISON: No exams were available for comparison FINDINGS: BONES: No acute fracture is present. No bony destructive lesion is seen. 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 JOINTS: No dislocation present. SOFT TISSUE: Swelling at plantar aspect of foot. A BB marker was placed to indicate the area of puncture wound. No foreign body is visible. IMPRESSION: Soft tissue swelling. No foreign body is visible. No evidence of fracture. Quality:SDOH Health Related Social Needs: No Data to Display PFSH All Active Problems (Updated 01/09/24 @ 13:23 by Chantell Brown) Puncture wound of plantar aspect of left foot (Acute) Nasal obstruction (Acute) Deviated nasal septum (Acute) Insomnia (Acute) Left rotator cuff tear (Acute) Repaired surgically Left shoulder pain (Acute) Left facial swelling (Acute) Olecranon bursitis of right elbow (Acute ~04/2023) Foot pain (Acute) Elevated PSA (Acute) Hyperlipidemia (Acute) Hx of [place]-Schlatter disease (Acute) Chondromalacia, right knee (Acute) Hypertension (Chronic) Heavy alcohol use (Acute) Mostly beer= 6 pack/daily Derangement of left shoulder joint (Acute) Bursitis of left shoulder (Acute) Tendinitis of long head of biceps brachii of left shoulder (Acute) Scapular dyskinesis (Acute) Rupture of right triceps tendon (Acute ~02/06/20) Rosacea (Acute) Medical History (Updated 01/09/24 @ 13:23 by Chantell Brown) Right arm cellulitis Septic olecranon bursitis of right elbow COVID-19 Diagnosed 07/02/21 Jannsen vaccine 01/30/21 Fracture of greater tuberosity of left humerus (09/08/19) HTN (hypertension) Surgical History Triceps tendon rupture Surgical repair on right. Hx of surgical amputation of finger Partial amp. left index finger Hx of meniscectomy of right knee H/O abdominal surgery No significant past surgical history Social History (Updated 01/04/24 @ 10:58 by Joycelyn Brian) Smoking/Tobacco Use Status: Former Tobacco Use Quit status: considering quitting Smoking risk assessment performed?: Yes Alcohol Intake: current Alcohol Intake frequency: 3 or more drinks per day Alcohol type: beer and hard liquor Previous attempts at quittin Counseling given: Yes Counseling provided: reduce to 2 or less/day and other Drug use: Daily Substance use type: marijuana Caregiver/Support person: No Household members: none Housing: house Communication Needs: Hard of Hearing Do you need help understanding health information?: Rarely Pets and animals: No Sexually active: Yes Do you think of yourself as: straight/heterosexual Current gender identity: male What is your relationship status?: refused to answer How often do you talk on the phone with friends or family?: three or more times per week How often do you get together with friends or relatives?: three or more times per week How often do you attend synagogue or latter day services?: decline to answer Do you belong to any clubs or organized social groups?: no Panel score (0-1 are the most socially isolated patients): 1 What type of physical activity do you participate in: none Frequency: does not exercise Akua/Catholic: None Special akua needs: No Seatbelt use: never Helmet use: No Do you feel safe at home: Yes Do you feel safe in your relationship?: Yes
[2024-01-09 13:51] VITALS: BP 150/90; PULSE 72; RESP 12; O2SAT 99
== END 2024-01-09 13:53 | disposition home or self-care (01) ==
PROVIDERS: Emergency Provider Nurse Practitioner Family; PCP Nurse Practitioner Family
DX: S91.332A Puncture wound without foreign body, left foot, initial encounter (principal); W22.09XA Striking against other stationary object, initial encounter; I10 Essential (primary) hypertension; Z79.899 Other long term (current) drug therapy
CPT/HCPCS: 99282; 73630; 99283

== ENCOUNTER 2024-01-11 03:16 | Outpatient (CLI) | payer OTHER, SELFPAY ==
[2024-01-11 16:37] LABS: ALT 50 U/L (16-63); AST 38 U/L (15-37); Albumin 3.9 g/dL (3.4-5.0); Alkaline Phosphatase 92 U/L (46-116); Anion Gap 9.1 mmol/L (3-11); BUN 20 mg/dL (7-18); Bilirubin, Total 0.7 mg/dL (0.2-1.0); CO2 25.9 mmol/L (21.0-32.0); CREATININE 1.2 mg/dL (0.70-1.30); Calcium 8.9 mg/dL (8.5-10.1); Calculated LDL 101 mg/dL (<100); Chloride 105 mmol/L (98-107); Cholesterol 193 mg/dL (<200); Estimated GFR 68.38 (mL/min/1.73m2); Glucose 87 mg/dL (74-106); HDL Cholesterol 60 mg/dL (40-60); Potassium 4.2 mmol/L (3.5-5.1); Sodium 140 mmol/L (136-145); Total Protein 7.8 g/dL (6.4-8.2); Triglyceride 163 mg/dL (<150)
== END 2024-01-11 03:17 | disposition home or self-care (01) ==
LOC: LBO 03:19
PROVIDERS: PCP Nurse Practitioner Family; Visit Provider Nurse Practitioner Family
DX: I10 Essential (primary) hypertension (principal); E78.5 Hyperlipidemia, unspecified
CPT/HCPCS: 36415; 80053; 80061

== ENCOUNTER 2024-01-26 16:56 | Emergency (ER) | payer OTHER, SELFPAY ==
[2024-01-26 16:59] VITALS: BP 144/99; PULSE 90; RESP 15; TEMP 37; O2SAT 97
[2024-01-26 17:02] VITALS: BP 144/99; PULSE 90; RESP 15; TEMP 37; O2SAT 97
--- NOTE | 2024-01-26 17:05 | ED.GENADUL_ITS ---
Discharge Plan Disposition Patient Disposition: Home Condition: Improving Discharge Details Clinical Impression: Angioedema Primary Care Provider: Guanakito Jay ED Provider: Glenn Page [facility] and New Rx's Prescriptions: New celecoxib 200 mg capsule 200 mg PO BID PRNQty: 30 0RF Continued fluticasone propionate [Flonase Allergy Relief] 50 mcg/actuation spray,suspension 2 spray intranasal DAILY Qty: 16 12RF Rx Instructions: administer into each nostril triamcinolone acetonide 0.5 % cream 1 applic topical BID Qty: 30 1RF Rx Instructions: Apply to both arms, face and neck twice daily until clear. atorvastatin 20 mg tablet 20 mg PO DAILY Qty: 90 4RF sildenafil [Viagra] 100 mg tablet 100 mg PO DAILY PRN (Reason: sexual activity) Qty: 3 8RF Rx Instructions: administer 1 to 1.5 hours before activity chlorthalidone 25 mg tablet 25 mg PO DAILY Qty: 90 3RF Discontinued losartan 100 mg tablet 100 mg PO DAILY Qty: 90 3RF Hold Instructions: Changed by Provider Discharge Instructions Instructions: Angioedema (ED) Additional Instructions: He was seen for angioedema which potentially may be related to nonsteroidals. You should for the time being avoid nonsteroidals, TASHI inhibitors, ARB's. I have prescribed celecoxib which you may try for pain and hopefully will not result in recurrent angioedema. Please follow-up with primary care this week. Return to ED for any further swelling, difficulty swallowing, difficulty breathing, urticaria or pruritus, other concerns. Referrals: Guanakito Jay, CONTINUOUS IMPROVEMENT DIRECTOR [Primary Care Provider] - HPI General Mode of arrival: ambulatory . Date/Time Provider Initiated Documentation: 01/26/24 17:03 . Limitations to Documentation: no limitations . Information obtained by: patient, RN notes reviewed and old records reviewed . HPI Narrative: Patient presenting to ED with left-sided tongue swelling. Patient reports that he first noticed swelling of his tongue about 2 PM. Arrived here about 5 PM with some continued swelling that has worsened over the course of hours not minutes. He has no associated pruritus, urticaria, difficulty breathing, voice change, swallowing problems. Does have prior history of angioedema which affected mostly his face and lips when he was on lisinopril. He did take Aleve this morning but he is taking this many times before. He is currently only on chlorthalidone and atorvastatin, just recently being taken off losartan. Denies any environmental exposures or insect stings. He has no GI symptoms. Denies any chest pain or tightness, cough. Related Data Home Medications Medication Instructions Recorded Confirmed triamcinolone acetonide 0.5 % 1 applic topical BID #30 grams 05/24/22 01/26/24 topical cream atorvastatin 20 mg tablet 20 mg PO DAILY #90 tabs 11/08/23 01/26/24 sildenafil 100 mg tablet (Viagra) 100 mg PO DAILY PRN sexual 12/12/23 01/26/24 activity #3 tabs fluticasone propionate 50 2 spray intranasal DAILY #16 grams 01/14/24 01/26/24 mcg/actuation nasal spray,suspension (Flonase Allergy Relief) chlorthalidone 25 mg tablet 25 mg PO DAILY #90 tabs 01/16/24 01/26/24 celecoxib 200 mg capsule 200 mg PO BID PRN #30 caps 01/26/24 Previous Rx's Medication Instructions Recorded triamcinolone acetonide 0.5 % 1 applic topical BID #30 grams 05/24/22 topical cream atorvastatin 20 mg tablet 20 mg PO DAILY #90 tabs 11/08/23 sildenafil 100 mg tablet (Viagra) 100 mg PO DAILY PRN sexual 12/12/23 activity #3 tabs fluticasone propionate 50 2 spray intranasal DAILY #16 grams 01/14/24 mcg/actuation nasal spray,suspension (Flonase Allergy Relief) chlorthalidone 25 mg tablet 25 mg PO DAILY #90 tabs 01/16/24 celecoxib 200 mg capsule 200 mg PO BID PRN #30 caps 01/26/24 Allergies Allergy/AdvReac Type Severity Reaction Status Date / Time lisinopril Allergy Severe Angio Edema Uncoded 01/14/24 14:41 [employer] Allergy Mild Skin Rash Uncoded 01/14/24 14:41 General Stated Complaint: DentalOral MICHAEL: 3 Review of Systems Narrative: Per HPI Exam Narrative Exam Narrative: Const: WDWN male in NAD. VS per triage. HEENT: NC/AT. Normal facial exam. Lips are normal. Left tongue is swollen but I am able to see the posterior oropharynx without significant difficulty. There is no swelling or edema involving uvula or posterior pharynx. Eyes: Normal conjunctiva and sclera. Neck: Supple. Trachea midline. No stridor. Lungs: Normal respiratory effort. Lungs are clear. Cor: RRR without murmur. Good radial pulses. Neuro: A+O x 3. Normal speech, mentation, gait. Cranial nerves II - XII grossly intact. No gross motor or sensory deficit. Skin: Warm and dry without rash. Course Vital Signs Vital signs: Vital Signs Temperature 98.6 F 01/26/24 16:59 Pulse 90 01/26/24 16:59 Respiratory Rate 15 01/26/24 16:59 Blood Pressure 144/99 H 01/26/24 16:59 Pulse Oximetry 97 01/26/24 16:59 Temperature 98.6 F 01/26/24 17:02 Temperature Source Tympanic 01/26/24 17:02 Pulse 90 01/26/24 17:02 Respiratory Rate 15 01/26/24 17:02 Respiratory Effort Normal 01/26/24 17:02 Blood Pressure 144/99 H 01/26/24 17:02 Blood Pressure Position Sitting 01/26/24 17:02 Pulse Oximetry 97 01/26/24 17:02 Oxygen Delivery Method Room Air 01/26/24 16:59 Oxygen Flow Rate 0 01/26/24 16:59 Medical Decision Making Patient presenting with angioedema involving the left side of his tongue. This is isolated and is progressed over hours not minutes. There is no associated urticaria, wheezing or difficulty breathing, GI symptoms. Does have prior history of angioedema related to lisinopril. While I can find no documented record in his primary care office notes he reports being taken off losartan towards the end of December and switched over to chlorthalidone. He did take Aleve this morning but is taking it before. Still potentially related to the NSAID though timing seems to be off. I do believe this is bradykinin pathway and not histamine pathway. He is in no distress and does not have any airway compromise. He is willing to be observed for the next hour or so to see if he has any further progression of symptoms or not. On reevaluation patient's tongue has improved. He has minimal swelling at this time. On the outside chance that this is related to nonsteroidal use we will have him hold nonsteroidals, TASHI inhibitors, ARBs. He does have chronic pain for which he usually takes nonsteroidals. He does not take acetaminophen because of his alcohol use. We can try a Saleh 2 inhibitor which should have less of a chance of causing recurrent angioedema. Patient is to follow-up with primary care this week. Return precautions discussed. Medical Records Medical records reviewed: Yes I reviewed the patient's medical records. Quality:SDOH Health Related Social Needs: No Data to Display PFSH All Active Problems (Updated 01/26/24 @ 18:18 by Glenn Page MD) Angioedema (Acute) Puncture wound of plantar aspect of left foot (Acute) Nasal obstruction (Acute) Deviated nasal septum (Acute) Insomnia (Acute) Left rotator cuff tear (Acute) Repaired surgically Left shoulder pain (Acute) Left facial swelling (Acute) Olecranon bursitis of right elbow (Acute ~04/2023) Foot pain (Acute) Elevated PSA (Acute) Hx of [place]-Schlatter disease (Acute) Chondromalacia, right knee (Acute) Hypertension (Chronic) Heavy alcohol use (Acute) Mostly beer= 6 pack/daily Derangement of left shoulder joint (Acute) Bursitis of left shoulder (Acute) Tendinitis of long head of biceps brachii of left shoulder (Acute) Scapular dyskinesis (Acute) Rupture of right triceps tendon (Acute ~02/06/20) Rosacea (Acute) Medical History Hyperlipidemia HTN (hypertension) Surgical History Triceps tendon rupture Surgical repair on right. Hx of surgical amputation of finger Partial amp. left index finger Hx of meniscectomy of right knee H/O abdominal surgery Social History Smoking/Tobacco Use Status: Former Tobacco Use Quit status: considering quitting Smoking risk assessment performed?: Yes Alcohol Intake: current Alcohol Intake frequency: 3 or more drinks per day Alcohol type: beer and hard liquor Previous attempts at quittin Counseling given: Yes Counseling provided: reduce to 2 or less/day and other Drug use: Daily Substance use type: marijuana Caregiver/Support person: No Household members: none Housing: house Communication Needs: Hard of Hearing Do you need help understanding health information?: Rarely Pets and animals: No Sexually active: Yes Do you think of yourself as: straight/heterosexual Current gender identity: male What is your relationship status?: refused to answer How often do you talk on the phone with friends or family?: three or more times per week How often do you get together with friends or relatives?: three or more times per week How often do you attend anabaptist or mormonism services?: decline to answer Do you belong to any clubs or organized social groups?: no Panel score (0-1 are the most socially isolated patients): 1 What type of physical activity do you participate in: none Frequency: does not exercise Akua/Uatsdin: None Special akua needs: No Seatbelt use: never Helmet use: No Do you feel safe at home: Yes Do you feel safe in your relationship?: Yes PAWSS Have you Been Recently Intoxicated or Drunk Within the Last 30 days?: No Have you Ever Experienced Previous Episodes of Alcohol Withdrawal?: No Have you ever Experienced Withdrawal Seizures?: No Have you ever Experienced Delirium Tremens(DT)s?: No Have you ever undergone Alcohol Rehabilitation Treatment (i.e, inpt ot outpatient treatment programs)?: No Have you ever Experienced Blackouts?: No Have you ever Combined Alcohol with other Downers within the last 90 days?: No Have you ever Combined Alcohol with any other Substance of Abuse during the last 90 days?: No Positive Blood Alcohol level on Presentation? [PCS.BAL]: No Evidence of Increased Autonomic Activity (i.e. HR>120, tremor, sweating, agitation, nausea)?: No Result: 0
== END 2024-01-26 18:24 | disposition home or self-care (01) ==
PROVIDERS: Emergency Provider Emergency Medicine; PCP Nurse Practitioner Family
DX: R22.0 Localized swelling, mass and lump, head (principal); T39.395A Adverse effect of other nonsteroidal anti-inflammatory drugs [NSAID], initial encounter
CPT/HCPCS: 99283

== ENCOUNTER 2024-07-01 15:51 | Outpatient (CLI) | payer OTHER, SELFPAY ==
--- NOTE | 2024-07-01 14:59 | DI.RAD_ITS ---
Exam(s) XR SHOULDER LT COMPLETE 2+V EXAM: XR SHOULDER LT COMPLETE 2+V CLINICAL HISTORY: LEFT SHOULDER PAIN. TECHNIQUE: 2D digital imaging was performed. Two views. COMPARISON: CR XR SHOULDER LT COMPLETE 2+V from 09/13/2023 MR MR UPPER JOINT LT WO from 12/13/2023 FINDINGS: BONES: No acute fracture is present. No bony destructive lesion is seen. Prominent spurring at the t ip of the acromion. Degenerative cyst at the greater tuberosity. Suture anchor in proximal humeral shaft consistent with prior biceps tendon repair. In proximal JOINTS: No dislocation present. Glenohumeral joint space is maintained. Spurring at the glenoid. SOFT TISSUE: Normal. IMPRESSION: Postsurgical degenerative changes. DATA REPOSITORY: RADIATION DOSE DELIVERED:
== END 2024-07-01 15:52 | disposition home or self-care (01) ==
LOC: DIORS 15:52
PROVIDERS: PCP Nurse Practitioner Family; Visit Provider Student in an Organized Health Care Education/Training Program
DX: S46.012D Strain of muscle(s) and tendon(s) of the rotator cuff of left shoulder, subsequent encounter (principal); X58.XXXD Exposure to other specified factors, subsequent encounter; Z98.890 Other specified postprocedural states
CPT/HCPCS: 73030

== ENCOUNTER 2024-09-09 21:30 | Outpatient (REF) | payer OTHER, SELFPAY ==
[2024-09-09 21:51] LABS: Abs Immature Grans 0.03 10^3/uL (0.0-0.06); Absolute Basophil Count 0.03 10^3/uL (0.0-0.2); Absolute Eosinophil Count 0.29 10^3/uL (0.0-0.7); Absolute Lymphocyte Count 1.51 10^3/uL (1.2-3.4); Absolute Monocyte Count 0.59 10^3/uL (0.1-0.8); Absolute Neutrophil Count 7.41 10^3/uL (1.2-6.7); Anion Gap 9.2 mmol/L (3-11); BUN 18 mg/dL (7-18); Basophils % 0.3 %; CO2 26.8 mmol/L (21.0-32.0); CREATININE 1.2 mg/dL (0.70-1.30); Calcium 8.6 mg/dL (8.5-10.1); Chloride 102 mmol/L (98-107); Eosinophils % 2.9 %; Estimated GFR 67.95 (mL/min/1.73m2); Glucose 131 mg/dL (74-106); HCT 41.2 % (40.0-50.0); HGB 14.1 g/dL (13.5-17.5); Immature Grans % 0.3 %; Lymphocytes % 15.3 %; MCH 31.3 pg (27.0-33.0); MCHC 34.2 % (32.0-36.0); MCV 92 fL (80-95); MPV 9.9 fL (8.0-11.0); Neutrophils % 75.2 %; Platelet Count 327 10^3/uL (130-400); RDW 12.8 % (11.8-14.1); RDW-SD 42.5 fL; Sodium 138 mmol/L (136-145); Uric Acid 7.1 mg/dL (3.5-7.2); WBC 9.86 10^3/uL (4.4-10.8)
== END 2024-09-09 21:31 | disposition home or self-care (01) ==
LOC: LBN 21:30
PROVIDERS: PCP Nurse Practitioner Family; Visit Provider Nurse Practitioner Family
DX: M79.674 Pain in right toe(s) (principal)
CPT/HCPCS: 80048; 84550; 85025

== ENCOUNTER 2024-11-18 16:19 | Emergency (ER) | payer OTHER, SELFPAY ==
[2024-11-18 16:22] VITALS: BP 115/71; PULSE 90; RESP 16; TEMP 36.5; O2SAT 96
--- NOTE | 2024-11-18 16:43 | ED.GENADUL_ITS ---
Discharge Plan Disposition Patient Disposition: Home Condition: Stable Discharge Details Clinical Impression: Laceration of flexor tendon of left thumb Primary Care Provider: Guanakito Jay ED Provider: [place] Home Meds and New Rx's Prescriptions: Continued amlodipine 5 mg tablet 5 mg PO DAILY Qty: 90 3RF fluticasone propionate [Flonase Allergy Relief] 50 mcg/actuation spray,suspension 2 spray intranasal DAILY Qty: 16 12RF Rx Instructions: administer into each nostril prednisone 5 mg tablet 5 mg PO DIRECTED Qty: 49 0RF Rx Instructions: 40 mg x 2 days, 30 mg x 2 days, 20 mg x 2 days, 15 mg x 2 days, 10 mg x 2 days, 5 mg x 2 days, 2.5 mg x 2 days, then stop. triamcinolone acetonide 0.5 % cream 1 applic topical BID Qty: 30 1RF Rx Instructions: Apply to both arms, face and neck twice daily until clear. atorvastatin 20 mg tablet 20 mg PO DAILY Qty: 90 4RF sildenafil [Viagra] 100 mg tablet 100 mg PO DAILY PRN (Reason: sexual activity) Qty: 3 8RF Rx Instructions: administer 1 to 1.5 hours before activity chlorthalidone 25 mg tablet 25 mg PO DAILY Qty: 90 3RF celecoxib 200 mg capsule 200 mg PO BID PRNQty: 30 0RF Discharge Instructions Instructions: Tendon Laceration, Laceration Repair With Stitches ED Additional Instructions: You were seen in the emergency department for the laceration of your left thumb with likely tendon laceration of the flexor tendon of left thumb. I loosely closed this wound with 3 sutures, you need to follow-up with orthopedics for definitive repair of the tendon. Please remain in the thumb splint and keep the area clean, you can remove the splint to wash your hands, do not submerge the wound for prolonged periods, keep it clean and dry, your tetanus is up-to-date you require no antibiotics at this time the wound was cleaned and thoroughly irrigated during repair. Please return to the emergency department for developing severe redness, purulent drainage from the area, red streaking up the arm or fever. Referrals: [facility] [Provider Group] Guanakito Jay, CHYRON OPERATOR [Primary Care Provider] - Discharge Data Discharge Date/Time-TO BE ENTERED AT DEPARTURE: 11/18/24 17:49 HPI General Date/Time Provider Initiated Documentation: 11/18/24 16:28 . HPI Narrative: 64 year-old male presents to ED today by POV/ambulating with a chief complaint of L thumb laceration, and decreased ROM- unable to flex his thumb with onset just prior to arrival while shoveling his roof. Quality described as inability to flex his left thumb, significant laceration to the palmar aspect of the thumb, no radiation to foreign body sensation, active severe bleeding, complete numbness distal to laceration, other injury. Severity is described as mild. Palliating factors include direct pressure with control bleeding. Provoking factors include nothing specific. Events leading up to the incident/Associated Symptoms: Patient's Tdap is up-to-date. Patient not anticoagulated. Related Data Home Medications ?Medication ?Instructions ?Recorded ?Confirmed triamcinolone acetonide 0.5 % 1 applic topical BID #30 grams 05/24/22 11/18/24 topical cream atorvastatin 20 mg tablet 20 mg PO DAILY #90 tabs 11/08/23 11/18/24 sildenafil 100 mg tablet (Viagra) 100 mg PO DAILY PRN sexual 12/12/23 11/18/24 activity #3 tabs chlorthalidone 25 mg tablet 25 mg PO DAILY #90 tabs 01/16/24 11/18/24 celecoxib 200 mg capsule 200 mg PO BID PRN #30 caps 01/26/24 11/18/24 amlodipine 5 mg tablet 5 mg PO DAILY #90 tabs 01/30/24 11/18/24 prednisone 5 mg tablet 5 mg PO DIRECTED #49 tabs 09/09/24 11/18/24 fluticasone propionate 50 2 spray intranasal DAILY #16 grams 09/22/24 11/18/24 mcg/actuation nasal spray,suspension (Flonase Allergy Relief) Previous Rx's ?Medication ?Instructions ?Recorded triamcinolone acetonide 0.5 % 1 applic topical BID #30 grams 05/24/22 topical cream atorvastatin 20 mg tablet 20 mg PO DAILY #90 tabs 11/08/23 sildenafil 100 mg tablet (Viagra) 100 mg PO DAILY PRN sexual 12/12/23 activity #3 tabs chlorthalidone 25 mg tablet 25 mg PO DAILY #90 tabs 01/16/24 celecoxib 200 mg capsule 200 mg PO BID PRN #30 caps 01/26/24 amlodipine 5 mg tablet 5 mg PO DAILY #90 tabs 01/30/24 prednisone 5 mg tablet 5 mg PO DIRECTED #49 tabs 09/09/24 fluticasone propionate 50 2 spray intranasal DAILY #16 grams 09/22/24 mcg/actuation nasal spray,suspension (Flonase Allergy Relief) Allergies Allergy/AdvReac Type Severity Reaction Status Date / Time lisinopril Allergy Severe Angio Edema Uncoded 11/18/24 16:24 WO[employer] PRESERV[employer]IVES Allergy Mild Skin Rash Uncoded 11/18/24 16:24 General Stated Complaint: Laceration MICHAEL: 3 Review of Systems All systems reviewed & are unremarkable except as noted in HPI and below Exam Narrative Exam Narrative: GENERAL APPEARANCE: Well-nourished, non-toxic, awake and alert, atraumatic, no acute distress. SKIN: Warm, pink, dry, intact, without rashes/lesions/ulcerations. HEAD: Normocephalic, atraumatic, normal hair distribution for gender/age. EYES: Normal conjunctiva, no exudates on lids/lashes. ENT: Nares patent, no circumoral cyanosis, no facial swelling NECK: Supple, trachea midline, painless cervical ROM. LUNGS/CHEST: Non-labored respirations, normal A/P diameter, symmetrical expansion, no chest wall deformity HEART (CV/PV): Regular rate, L radial pulse 2+, no peripheral edema, no JVD. ABDOMEN: Soft, non-distended, no guarding. MSK: Normal ROM, no swelling/deformity to bilateral UEs or LEs, moving all extremities without weakness, no cyanosis, spine midline without tenderness, normal curvature-L thumb: 4 cm laceration to the palmar aspect of left thumb, tendon not visualized, 0/5 strength in flexion of the left thumb but brisk capillary refill and sensation intact in the finger pad, no anatomical snuffbox tenderness NEURO: Mental Status AAOx4 - alert to person, place, time, events No facial droop, no forehead involvement. Motor: No focal weakness - strength 5/5 in bilateral UEs and LEs, proximal and distal, symmetric. Sensory: sensation intact to light touch globally. Gait normal: patient ambulated without ataxia into ED room. PSYCH: euthymic, cooperative, pleasant, appropriate speech Course Vital Signs Vital signs: Vital Signs Temperature 36.5 C 11/18/24 16:22 Pulse 90 11/18/24 16:22 Respiratory Rate 16 11/18/24 16:22 Blood Pressure 115/71 11/18/24 16:22 Pulse Oximetry 96 11/18/24 16:22 Temperature 36.5 C 11/18/24 16:22 Temperature Source Oral 11/18/24 16:22 Pulse 90 11/18/24 16:22 Respiratory Rate 16 11/18/24 16:22 Blood Pressure 115/71 11/18/24 16:22 Pulse Oximetry 96 11/18/24 16:22 Procedure Laceration Laceration 1: Date of Procedure: 11/18/24 Time of procedure: 17:30 Provider that performed the procedure: Martin Park Standard Time Out Performed: No Patient Consented: Verbally Site: hand Side (If applicable): left Description: linear Depth: simple, single layer Local anesthetic: Lidocaine 1% Amount of anesthesia used (mL): 4 Pre-repair:: wound explored and irrigated extensively Skin layer closed with: nylon Suture size: 5-0 Number of sutures:: 3 Technique: simple, interrupted Procedure Description/Note: Unable to visualize tendon, NV intact distally. Medical Decision Making This dictation utilizes [id number] dictation software and may contain unedited grammatical errors. 64 year-old male presents to ED today by POV/ambulating with a chief complaint of L thumb laceration, and decreased ROM- unable to flex his thumb with onset just prior to arrival while shoveling his roof. Quality described as inability to flex his left thumb, significant laceration to the palmar aspect of the thumb, no radiation to foreign body sensation, active severe bleeding, complete numbness distal to laceration, other injury. Severity is described as mild. Palliating factors include direct pressure with control bleeding. Provoking factors include nothing specific. Events leading up to the incident/Associated Symptoms: Patient's Tdap is up-to-date. Patients' medical history: Hypertension, otherwise noncontributory. Family and social history: Contributory. Pertinent exam findings / vital signs include deep 4 cm laceration to the palmar aspect of the left thumb, tendon is not visualized but the patient has 0/5 strength in flexion of the left thumb, no anatomical snuffbox tenderness, no active bleeding. Differential / pathologies of concern include laceration, tendon laceration. Diagnostic studies of: -None. Interventions of: -Local anesthetic and suture repair loosely with referral to orthopedics. ED Course/Assessment/Plan: 64-year-old male presents with likely tendon laceration of flexor tendon of his left thumb, I loosely 1 with 3 sutures of Ethilon and referred him to orthopedics for definitive repair. Counseled him on cleat keeping the wound clean, his tetanus is up-to-date. Findings not consistent with neurovascular compromise. Disposition of Laceration of Flexor Tendon of Left Thumb. Patient verbalized understanding of the plan and return to ED criteria and engaged in shared decision making. Medical Records Medical records reviewed: Yes I reviewed the patient's medical records. Quality:SDOH Health Related Social Needs: No Data to Display PFSH All Active Problems (Updated 11/18/24 @ 17:15 by ELAINE Pereira) Laceration of flexor tendon of left thumb (Acute) Rotator cuff tear arthropathy of left shoulder (Acute) Nasal obstruction (Acute) Deviated nasal septum (Acute) Insomnia (Acute) Left rotator cuff tear (Acute) Repaired surgically Left shoulder pain (Acute) Left facial swelling (Acute) Olecranon bursitis of right elbow (Acute ~04/2023) Foot pain (Acute) Elevated PSA (Acute) Hx of Filiberto-Schlatter disease (Acute) Chondromalacia, right knee (Acute) Hypertension (Chronic) Heavy alcohol use (Acute) Mostly beer= 6 pack/daily Derangement of left shoulder joint (Acute) Bursitis of left shoulder (Acute) Tendinitis of long head of biceps brachii of left shoulder (Acute) Scapular dyskinesis (Acute) Rupture of right triceps tendon (Acute ~02/06/20) Rosacea (Acute) Medical History Hyperlipidemia HTN (hypertension) Surgical History Triceps tendon rupture Surgical repair on right. Hx of surgical amputation of finger Partial amp. left index finger Hx of meniscectomy of right knee H/O abdominal surgery Social History Smoking/Tobacco Use Status: Former Tobacco Use Quit status: considering quitting Smoking risk assessment performed?: Yes Alcohol Intake: current Alcohol Intake frequency: 3 or more drinks per day Alcohol type: beer and hard liquor Previous attempts at quittin Counseling given: Yes Counseling provided: reduce to 2 or less/day and other Drug use: Daily Substance use type: marijuana Caregiver/Support person: No Household members: none Housing: house Communication Needs: Hard of Hearing Do you need help understanding health information?: Rarely Pets and animals: No Sexually active: Yes Do you think of yourself as: straight/heterosexual Current gender identity: male What is your relationship status?: refused to answer How often do you talk on the phone with friends or family?: three or more times per week How often do you get together with friends or relatives?: three or more times per week How often do you attend religious or voodoo services?: decline to answer Do you belong to any clubs or organized social groups?: no Panel score (0-1 are the most socially isolated patients): 1 What type of physical activity do you participate in: none Frequency: does not exercise Akua/Judaism: None Special akua needs: No Seatbelt use: never Helmet use: No Do you feel safe at home: Yes Do you feel safe in your relationship?: Yes PAWSS Have you Been Recently Intoxicated or Drunk Within the Last 30 days?: No Have you Ever Experienced Previous Episodes of Alcohol Withdrawal?: No Have you ever Experienced Withdrawal Seizures?: No Have you ever Experienced Delirium Tremens(DT)s?: No Have you ever undergone Alcohol Rehabilitation Treatment (i.e, inpt ot outpatient treatment programs)?: No Have you ever Experienced Blackouts?: No Have you ever Combined Alcohol with other Downers within the last 90 days?: No Have you ever Combined Alcohol with any other Substance of Abuse during the last 90 days?: No Positive Blood Alcohol level on Presentation? [PCS.BAL]: No Evidence of Increased Autonomic Activity (i.e. HR>120, tremor, sweating, agitation, nausea)?: No Result: 0
[2024-11-18 17:49] VITALS: BP 115/71; PULSE 90; RESP 16; TEMP 36.5; O2SAT 96
== END 2024-11-18 17:49 | disposition home or self-care (01) ==
PROVIDERS: Emergency Provider Physician Assistant; PCP Nurse Practitioner Family
DX: S66.022A Laceration of long flexor muscle, fascia and tendon of left thumb at wrist and hand level, initial encounter (principal); I10 Essential (primary) hypertension; E78.5 Hyperlipidemia, unspecified; Z87.891 Personal history of nicotine dependence; W26.8XXA Contact with other sharp object(s), not elsewhere classified, initial encounter
CPT/HCPCS: 12002; 99283

== ENCOUNTER 2025-01-02 13:25 | Outpatient (CLI) | payer OTHER, SELFPAY ==
[2025-01-02 12:35] LABS: Hemoglobin A1C 5.6 % (<5.7)
[2025-01-02 12:59] LABS: Anion Gap 6.7 mmol/L (3-11); BUN 27 mg/dL (7-18); CO2 31.3 mmol/L (21.0-32.0); CREATININE 1.1 mg/dL (0.70-1.30); Calcium 8.9 mg/dL (8.5-10.1); Calculated LDL 45 mg/dL (<100); Chloride 101 mmol/L (98-107); Cholesterol 177 mg/dL (<200); Estimated GFR 75.43 (mL/min/1.73m2); Glucose 98 mg/dL (74-106); HDL Cholesterol 57 mg/dL (>or=40); Potassium 3.6 mmol/L (3.5-5.1); Sodium 139 mmol/L (136-145); Triglyceride 378 mg/dL (<150)
== END 2025-01-02 13:26 | disposition home or self-care (01) ==
LOC: LBO 13:25
PROVIDERS: PCP Nurse Practitioner Family; Visit Provider Nurse Practitioner Family
DX: Z13.1 Encounter for screening for diabetes mellitus (principal); I10 Essential (primary) hypertension; Z13.220 Encounter for screening for lipoid disorders
CPT/HCPCS: 36415; 80048; 80061; 83036

== ENCOUNTER 2025-04-05 08:29 | Emergency (ER) | payer OTHER, SELFPAY ==
[2025-04-05 08:32] VITALS: BP 127/73; PULSE 76; RESP 16; TEMP 36.2; O2SAT 98
--- NOTE | 2025-04-05 08:45 | DI.RAD_ITS ---
Exam(s) XR ANKLE LT COMPLETE EXAM: XR ANKLE LT COMPLETE CLINICAL HISTORY: pain, swelling TECHNIQUE: 2D digital imaging was performed. Three views. COMPARISON: No exams were available for comparison FINDINGS: BONES: No acute fracture is present. Smoothly marginated bony densities are noted beneath the malleoli consistent with old injury. No bony destructive lesion is seen. Enthesophyte at Achilles insertion on calcaneus. JOINTS:The ankle mortise is normally aligned. The tibiotalar joint space is maintained. SOFT TISSUE: Swelling around the malleoli. Mild vascular calcifications. IMPRESSION: No acute abnormality. The preliminary [facility] report was reviewed. DATA REPOSITORY: RADIATION DOSE DELIVERED:
[2025-04-05] MEDS: Acetaminophen 325 MG TAB 650 MG PO (08:57)
--- NOTE | 2025-04-05 09:18 | W.ED.GENAD ---
Discharge Plan Disposition Patient Disposition: Home Condition: Stable Discharge Details Clinical Impression: Arthritis of left ankle Primary Care Provider: Guanakito Jay ED Provider: Robert Henson Home Meds and New Rx's Prescriptions: New colchicine 0.6 mg tablet 0.6 mg PO BID Qty: 60 0RF Continued fluticasone propionate [Flonase Allergy Relief] 50 mcg/actuation spray,suspension 2 spray intranasal DAILY Qty: 16 12RF Rx Instructions: administer into each nostril triamcinolone acetonide 0.5 % cream 1 applic topical BID Qty: 30 1RF Rx Instructions: Apply to both arms, face and neck twice daily until clear. atorvastatin 20 mg tablet 20 mg PO DAILY Qty: 90 4RF chlorthalidone 25 mg tablet 25 mg PO DAILY Qty: 90 3RF sildenafil [Viagra] 100 mg tablet 100 mg PO DAILY PRN (Reason: sexual activity) Qty: 3 8RF Rx Instructions: administer 1 to 1.5 hours before activity amlodipine 5 mg tablet 5 mg PO DAILY Qty: 90 3RF Discharge Instructions Instructions: Osteoarthritis Additional Instructions: Your left ankle is inflamed. I am concerned this may be osteoarthritis versus gout. You have been started on acetaminophen (Tylenol) and colchicine. I recommend you use an ankle brace and crutches over the next 1 week. You have declined ankle brace and crutches today and will use your equipment at home. You may weight-bear as tolerated. Rest your ankle and keep it elevated when off your feet. Please follow-up with your primary care physician in 2-3 days for reassessment. Should symptoms worsen or if you develop new concerning symptoms including worsening inflammation or fever, return to the emergency department for further diagnostic workup. Stand Alone Forms: Work Release Referrals: Guanakito Jay, SPOOL SORTER [Primary Care Provider, Medicine] HPI General Mode of arrival: ambulatory. Date/Time Provider Initiated Documentation: 04/05/25 08:43. Limitations to Documentation: no limitations. Information obtained by: patient. HPI Narrative: HISTORY OF PRESENT ILLNESS 65-year-old male with history of osteoarthritis presenting with left ankle pain. Pain began on 04/02/2025, located anterolaterally. Initially mild, now intensified with swelling and warmth. Pain described as sore, worsened over time. History of osteoarthritis and thumb inflammation. Managing pain with aspirin and ice; tramadol taken yesterday due to significant pain hindering walking. Allergy to ibuprofen causing angioedema. Not taking lisinopril for blood pressure. Patient does consumes 5-6 beers daily. No diabetes or immunosuppressive medications. Primary care physician: Dr. Troy. Childhood fracture of the same ankle. No tick bites or rashes. No associated fevers. Related Data Home Medications ?Medication ?Instructions ?Recorded ?Confirmed triamcinolone acetonide 0.5 % 1 applic topical BID #30 grams 05/24/22 04/05/25 topical cream fluticasone propionate 50 2 spray intranasal DAILY #16 grams 09/22/24 04/05/25 mcg/actuation nasal spray,suspension (Flonase Allergy Relief) atorvastatin 20 mg tablet 20 mg PO DAILY #90 tabs 12/09/24 04/05/25 chlorthalidone 25 mg tablet 25 mg PO DAILY #90 tabs 02/04/25 04/05/25 sildenafil 100 mg tablet (Viagra) 100 mg PO DAILY PRN sexual 02/04/25 04/05/25 activity #3 tabs amlodipine 5 mg tablet 5 mg PO DAILY #90 tabs 02/06/25 04/05/25 colchicine 0.6 mg tablet 0.6 mg PO BID #60 tabs 04/05/25 Previous Rx's ?Medication ?Instructions ?Recorded triamcinolone acetonide 0.5 % 1 applic topical BID #30 grams 05/24/22 topical cream fluticasone propionate 50 2 spray intranasal DAILY #16 grams 09/22/24 mcg/actuation nasal spray,suspension (Flonase Allergy Relief) atorvastatin 20 mg tablet 20 mg PO DAILY #90 tabs 12/09/24 chlorthalidone 25 mg tablet 25 mg PO DAILY #90 tabs 02/04/25 sildenafil 100 mg tablet (Viagra) 100 mg PO DAILY PRN sexual 02/04/25 activity #3 tabs amlodipine 5 mg tablet 5 mg PO DAILY #90 tabs 02/06/25 colchicine 0.6 mg tablet 0.6 mg PO BID #60 tabs 04/05/25 Allergies Allergy/AdvReac Type Severity Reaction Status Date / Time lisinopril Allergy Severe Angio Edema Uncoded 04/05/25 08:34 WOOD PRESERVATIVES Allergy Mild Skin Rash Uncoded 04/05/25 08:34 General Stated Complaint: Orthopedic MICHAEL: 4 Review of Systems All systems reviewed & are unremarkable except as noted in HPI and below Constitutional Constitutional: Denies fever(s) Exam Const General: cooperative and no acute distress Orientation: alert and awake Extrem Left lower extremity: lower leg Details: normal to inspection, ankle Details: tenderness Location: anterolaterally, swelling Details: laterally; not medially and not posteriorly, abnormal ROM Details: pain with active ROM Details: with dorsiflexion, warmth Location: laterally and other (No redness) and foot Details: normal to inspection Course Vital Signs Vital signs: Vital Signs Temperature 36.2 C L 04/05/25 08:32 Pulse 76 04/05/25 08:32 Respiratory Rate 16 04/05/25 08:32 Blood Pressure 127/73 04/05/25 08:32 Pulse Oximetry 98 04/05/25 08:32 Temperature 36.2 C L 04/05/25 08:32 Temperature Source Tympanic 04/05/25 08:32 Pulse 76 04/05/25 08:32 Respiratory Rate 16 04/05/25 08:32 Blood Pressure 127/73 04/05/25 08:32 Pulse Oximetry 98 04/05/25 08:32 Pain Level 7 04/05/25 08:57 Medical Decision Making ASSESSMENT AND PLAN Initial Assessment: Left ankle pain began 04/02/2025. No known injury. History of osteoarthritis. Consumes 5-6 beers daily. Ankle swollen anterior lateral and slightly warm, no errythema. Afebrile with no systemic symptoms. Differential Diagnosis: - Gout: Regular alcohol use. Joint inflammation. Trial colchicine. - Osteoarthritis: History of osteoarthritis. Degenerative changes on x-ray. Symptomatic treatment. - Septic arthritis: Unlikely, no risk factors including immunosuppressive's, no systemic symptoms. ED Course: -Ice pack applied. Tylenol administered. -X-ray reviewed. Degenerative changes, no acute fracture. -Radiology interpreted incompletely healed avulsion fractures of medial and lateral malleolus. No malalignment or dislocation. -Patient reassessed. Discussed further diagnostics including arthrocentesis. Informed refusal. Symptomatic treatment and continued monitoring preferred. -Tylenol administered at 1300 hours. -Discussed empiric treatment with colchicine and patient would like to trial. Initial 1.2 mg dose provided here. -I recommended orthopedic boot and crutches and patient declined noting he has equipment at home that he will apply. - I recommended decreasing alcohol intake Final Assessment: Atraumatic left ankle pain with swelling and warmth. Symptomatic treatment preferred. Trial of colchicine. Close outpatient follow-up for reassessment. Clinical Impression: - Osteoarthritis - Possible gout Disposition: - Discharge home. Return for worsening or new symptoms including inflammation and fever. - Follow-Up: Primary care physician in the next few days for reassessment. Patient Education: Usual discharge instructions reviewed. Return precautions discussed. This document was written with the assistance of MAGDALENO Alcantara. The patient consented to its use. PFSH All Active Problems Arthritis of left ankle (Acute) Rotator cuff tear arthropathy of left shoulder (Acute) Nasal obstruction (Acute) Deviated nasal septum (Acute) Insomnia (Acute) Left rotator cuff tear (Acute) Repaired surgically Left shoulder pain (Acute) Left facial swelling (Acute) Olecranon bursitis of right elbow (Acute ~04/2023) Foot pain (Acute) Elevated PSA (Acute) Hx of Filiberto-Schlatter disease (Acute) Chondromalacia, right knee (Acute) Hypertension (Chronic) Heavy alcohol use (Acute) Mostly beer= 6 pack/daily Derangement of left shoulder joint (Acute) Bursitis of left shoulder (Acute) Tendinitis of long head of biceps brachii of left shoulder (Acute) Scapular dyskinesis (Acute) Rupture of right triceps tendon (Acute ~02/06/20) Rosacea (Acute) Medical History Hyperlipidemia HTN (hypertension) Surgical History Triceps tendon rupture Surgical repair on right. Hx of surgical amputation of finger Partial amp. left index finger Hx of meniscectomy of right knee H/O abdominal surgery Social History Smoking/Tobacco Use Status: Former Tobacco Use tobacco type: smokeless tobacco Smokeless tobacco user: chewing tobacco Quit status: considering quitting Second Hand Exposure: Yes Smoking risk assessment performed?: Yes Alcohol Intake: current Alcohol Intake frequency: 3 or more drinks per day Alcohol type: beer Previous attempts at quittin Counseling given: Yes Counseling provided: reduce to 2 or less/day and other Details: 7-9 drinks on typical day, 6 or more daily Drug use: Daily Substance use type: marijuana Counseling given: No Adopted: No Caregiver/Support person: No Household members: none Housing: house Number of Children: 2 Communication Needs: Hard of Hearing Education Level: high school Details: 12th Do you need help understanding health information?: Rarely 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 Pets and animals: No Sexually active: Yes Do you think of yourself as: straight/heterosexual Current gender identity: male What is your relationship status?: How often do you talk on the phone with friends or family?: three or more times per week How often do you get together with friends or relatives?: decline to answer How often do you attend yarsanism or roman catholic services?: decline to answer Do you belong to any clubs or organized social groups?: no Panel score (0-1 are the most socially isolated patients): 1 What type of physical activity do you participate in: decline to answer Duration: decline to answer Frequency: decline to answer Akua/Uatsdin: None Special akua needs: No Agree to transfusion: No Seatbelt use: never Helmet use: No Do you feel safe at home: Yes Do you feel safe in your relationship?: Yes PAWSS Have you Been Recently Intoxicated or Drunk Within the Last 30 days?: No Have you Ever Experienced Previous Episodes of Alcohol Withdrawal?: No Have you ever Experienced Withdrawal Seizures?: No Have you ever Experienced Delirium Tremens(DT)s?: No Have you ever undergone Alcohol Rehabilitation Treatment (i.e, inpt ot outpatient treatment programs)?: No Have you ever Experienced Blackouts?: No Have you ever Combined Alcohol with other Downers within the last 90 days?: No Have you ever Combined Alcohol with any other Substance of Abuse during the last 90 days?: No Result: 0
--- NOTE | 2025-04-05 09:59 | DI.VRAD_ITS ---
PROCEDURE INFORMATION: Exam: XR Left Ankle Exam date and time: 04/05/2025 9:06 AM Age: 65 years old Clinical indication: Other: Pain, swelling TECHNIQUE: Imaging protocol: Radiologic exam of the left ankle. Views: 3 or more views. COMPARISON: CR XR FOOT LT COMPLETE 01/09/2024 12:49 PM FINDINGS: Bones/joints: Incompletely healed well corticated avulsion fractures off the medial malleolus and lateral malleolus. There is no evidence of acute fracture.There is no evidence of malalignment or dislocation. Soft tissues: Normal. IMPRESSION: 1. Incompletely healed well corticated avulsion fractures off the medial malleolus and lateral malleolus. 2. There is no evidence of acute fracture.There is no evidence of malalignment or dislocation. Dictated and Authenticated by: Siobhan Mustafa MD. Orderin Natividad Jones MD
[2025-04-05] MEDS: Colchicine 0.6 MG TAB 1.2 MG PO (10:25)
[2025-04-05 10:26] VITALS: BP 129/81; PULSE 77; RESP 16; O2SAT 96
--- NOTE | 2025-04-05 10:27 | NUR.NOTE ---
Nursing Note: PT katherin espinal says he already owns a pair they are at home
== END 2025-04-05 10:26 | disposition home or self-care (01) ==
PROVIDERS: Emergency Provider Student in an Organized Health Care Education/Training Program; PCP Nurse Practitioner Family
DX: M13.872 Other specified arthritis, left ankle and foot (principal); E78.5 Hyperlipidemia, unspecified; I10 Essential (primary) hypertension
CPT/HCPCS: 99283; 73610

== ENCOUNTER 2025-06-30 13:28 | Outpatient (CLI) | payer OTHER, SELFPAY ==
--- NOTE | 2025-06-30 13:26 | DI.RAD_ITS ---
Exam(s) XR KNEE RT 3V AP,LAT,LJ EXAM: XR KNEE RT 3V AP,LAT,LJ CLINICAL HISTORY: knee pain,rt,m25.561. TECHNIQUE: 2D digital imaging was performed of the right knee. Three views obtained. AP, lateral and PA tunnel views were obtained. COMPARISON: MR RIGHT KNEE from 11/12/2007 MR RIGHT KNEE from 11/12/2007 CR XR KNEE RT 3V AP,LAT,LJ from 02/23/2021 FINDINGS: BONES: No acute fracture is present. No bony destructive lesion is seen. There is an eccentric peripherally sclerotic lesion in the posterior aspect of the proximal tibial metaphysis. This is unchanged dating back to an MRI from 2007. This is most consistent with a benign lesion. JOINTS: There is mild narrowing of the lateral femoral tibial joint. There are small osteophytes in all 3 joint compartments. There is a small joint effusion. SOFT TISSUE: There is again seen a well corticated osseous density at the level of the anterior tibial tuberosity. There are well corticated osseous densities again seen adjacent to the medial femoral condyle. IMPRESSION: [id number] degenerative changes seen in the right knee. DATA REPOSITORY: RADIATION DOSE DELIVERED:
== END 2025-06-30 13:48 ==
LOC: DI 13:28
PROVIDERS: PCP Nurse Practitioner Family; Visit Provider Physician Assistant
DX: M25.561 Pain in right knee (principal); M25.861 Other specified joint disorders, right knee
CPT/HCPCS: 73562